=== PATIENT | male | born 1955 | race Caucasian/White ===

== ENCOUNTER 2019-03-07 20:14 | Inpatient (IN) | payer MEDICARE, OTHER ==
[~2019-03-07] VITALS: Ht 180.3 cm; Wt 82.7 kg
[2019-03-07] MEDS ORDERED: NO HOME MEDS (20:31)
[2019-03-07] MEDS ORDERED: morphine 4 MG/ML inj SYRINge IV ONE (20:45)
[2019-03-07] MEDS ORDERED: fentaNYL/PF 50MCG/1 ML 2ML syringe ONE (21:44)
[2019-03-07] MEDS ORDERED: midazolam 2 mg/2 ml injection ONE (21:44)
[2019-03-07] MEDS ORDERED: ringers solution, lacted 1,000 ML IV SCH (21:52)
[2019-03-07] MEDS ORDERED: hydrALAZINE 20mg/ml inj. IV PRN (21:55)
[2019-03-07] MEDS ORDERED: ondansetron/PF 4mg/2ml inj IV PRN (21:55)
[2019-03-07] MEDS ORDERED: labetalol 20mg/4ml (5mg/ml) syringe IV PRN (21:55)
[2019-03-07] MEDS ORDERED: morphine 4 MG/ML inj SYRINge IV PRN ×2 (21:55)
[2019-03-07] MEDS ORDERED: fentaNYL/PF 50MCG/1 ML 2ML syringe IV PRN ×2 (21:55)
[2019-03-07] MEDS ORDERED: succinylcholine 20mg/ml inj IV ONE (22:07)
[2019-03-07] MEDS ORDERED: propofol inj 20 ML IV ONE (22:07)
[2019-03-07] MEDS ORDERED: LIDOcaine 2% (20mg/ml) 5ml vial ONE (22:07)
[2019-03-07] MEDS ORDERED: ondansetron/PF 4mg/2ml inj ONE (22:08)
[2019-03-07] MEDS ORDERED: dexamethasone sod phosphate 10mg/ml inj ONE (22:08)
[2019-03-07] MEDS ORDERED: sevoflurane 250ml liquid IH ONE (22:08)
[2019-03-07] MEDS ORDERED: ceFOXitin 2 GM ADDVANTGE BAG 50 ML IV ONE (22:37)
[2019-03-07] MEDS ORDERED: gentamicin 40 MG/1 ML inj ONE (23:24)
[2019-03-07] MEDS ORDERED: clindamycin phosphate 150mg/ml inj. ONE (23:24)
[2019-03-07] MEDS ORDERED: morphine/PF injection 20 MG, BUPIVAcaine 0.5% inj/PF 250 MG in normal saline 250ml IV s... EPI SCH (23:28)
[2019-03-07] MEDS ORDERED: NALOXONE IV PRN (23:28)
[2019-03-07] MEDS ORDERED: NORMAL SALINE IV PRN (23:28)
[2019-03-07] MEDS ORDERED: BUPIVAcaine/PF 2.5mg/ml (0.25%) 10ml vial ONE (23:38)
[2019-03-07] MEDS ORDERED: rocuronium 10mg/ml inj IV ONE (23:39)
[2019-03-08] VITALS (38 sets, daily range): BP systolic 68–162; BP diastolic 38–91
[2019-03-08] MEDS ORDERED: fentaNYL/PF 50MCG/1 ML 2ML syringe ONE (00:11)
--- NOTE | 2019-03-08 00:17 | NUR ---
Received to room 2014, accompanied by anesthesia and surgical crew. Received report from anesthesia and circulating RN. Placed on ventilator, to travograph operator, Dressings are dry and intact. See assessment record.
[2019-03-08 00:51] LABS: ABG BASE EXCESS -3.2 mmol/L (-2.0-3.0); ABG HCO3 23.2 mmol/L (22.0-26.0); ABG OXYGEN SATURATION 96.3 % (95-98); ABG PCO2 (T) 46.1 mmHg (35.0-45.0); ABG PH (T) 7.316 (7.350-7.450); ABG PO2 (T) 90.4 mmHg (83-108); ALLEN'S TEST Positive; FCOHb 0.3 % (0.5-1.5); FMetHb 0.2 % (0.3-1.12); FO2Hb 95.8 % (94-100); MINUTE VOLUME 7 L/min; PATIENT TEMPERATURE 36.2; PEEP 5 cm H2O; RESPIRATORY RATE 16 b/min; RESPIRATORY RATE (OBSERVED) 16 b/min; TIDAL VOLUME 450 mL; TOTAL HEMOGLOBIN 9.9 G/dl (14.0-17.9)
[2019-03-08] MEDS: midazolam 100mg in NS 100ml 100 ML IV PRN ×3 (00:56→19:28)
[2019-03-08] MEDS: Potassium Cl inj 20 MEQ in ringers solution, lacted 1,000 ML IV SCH ×3 (01:49→14:50)
[2019-03-08] MEDS: piperacillin/tazo 3.375gm/50ml 50 ML IV SCH ×3 (01:50→15:29)
[2019-03-08] MEDS ORDERED: albumin (Human) 5% 250ml 500 ML IV ONE (01:57)
--- NOTE | 2019-03-08 01:57 | NUR ---
Pt hypotensive, mottled. BP not improved with 250 mL NS bolus. Esperanza notified, orders received.
[2019-03-08] MEDS ORDERED: albumin (Human) 5% 250ml 250 ML IV ONE ×2 (02:15)
[2019-03-08] MEDS: [UNRECOGNIZED DRUG - OTHER] EPI SCH (02:35)
[2019-03-08] MEDS: MORPHINE SULFATE EPI SCH (02:35)
[2019-03-08] MEDS: BUPIVACAINE EPI SCH (02:35)
[2019-03-08] MEDS ORDERED: hydrocortisone sod succ/PF 100mg/2ml inj. IV ONE (02:45)
[2019-03-08] MEDS ORDERED: NORepinephrine 8mg/ 250ml NS 250 ML IV ONE (02:56)
[2019-03-08] MEDS ORDERED: normal saline 1000ml 1,000 ML IVB ONE ×2 (03:05→03:07)
--- NOTE | 2019-03-08 03:31 | NUR ---
Dr Yu at bedside, central line placed per CLIP protocol, Levophed switched to central line. titrating per protocol Labs drawn, awaiting results
[2019-03-08 03:59] LABS: BASOPHILS % (AUTO) 0.2 % (0-1); EOSINOPHILS % (AUTO) 0.1 % (0-6); LYMPHOCYTES # (AUTO) 0.8 X10'3 (1.1-4.8); LYMPHOCYTES % (AUTO) 4.8 % (21-51); MEAN CORPUSCULAR HGB CONC 31.9 g/dL (33.0-36.5); MEAN PLATELET VOLUME 6.9 FL (7.4-10.4); MONOCYTES # (AUTO) 0.5 X10'3 (0-0.9); NEUTROPHILS # (AUTO) 15.3 X10'3 (1.8-7.7); NEUTROPHILS % (AUTO) 91.9 % (42-75); PLATELET COUNT 456 X10'3 (140-440); RED BLOOD COUNT 2.28 X10'6 (4.70-6.10); RED CELL DISTRIBUTION WIDTH 20.5 % (11.5-14.5); WHITE BLOOD COUNT 16.6 X10'3 (4.5-11.0)
[2019-03-08 04:03] LABS: HEMATOCRIT 20.7 % (42.0-52.0); HEMOGLOBIN 6.6 g/dl (14.0-17.9)
[2019-03-08 04:09] LABS: ALANINE AMINOTRANSFERASE 21 U/L (12-78); ALBUMIN 1.6 G/DL (3.4-5.0); ALBUMIN/GLOBULIN RATIO 0.4 (1.1-1.5); ALKALINE PHOSPHATASE 276 IU/L (46-116); ANION GAP 11 (8-16); ASPARTATE AMINO TRANSFERASE 37 U/L (10-37); BILIRUBIN,TOTAL 0.4 MG/DL (0.1-1.0); BLOOD UREA NITROGEN 13 MG/DL (7-18); BUN/CREATININE RATIO 15.9 (5.4-32.0); CALCIUM 7.5 MG/DL (8.5-10.1); CHLORIDE 109 MMOL/L (99-107); CREATININE 0.82 MG/DL (0.60-1.10); GLUCOSE 109 MG/DL (70-104); MAGNESIUM 1.8 MG/DL (1.5-2.4); PHOSPHORUS 5.6 MG/DL (2.3-4.5); SODIUM 143 MMOL/L (135-145); TOTAL PROTEIN 5.2 G/DL (6.4-8.2); eGFR > 90 ML/MIN
[2019-03-08 04:22] LABS: ANISOCYTOSIS 3+; HYPOCHROMASIA 2+; PLATELET ESTIMATE INCREASED
[2019-03-08] MEDS ORDERED: magnesium 4gm in 100ml NS 100 ML IV PRN (04:45)
[2019-03-08] MEDS ORDERED: magnesium 2GM in 50ml NS 50 ML IV PRN (04:45)
[2019-03-08 04:49] LABS: D-DIMER 1.92 MG/L FEU (0-0.50); PARTIAL THROMBOPLASTIN TIME 30 SECONDS (22-32)
[2019-03-08] MEDS ORDERED: calcium chloride inj. 1,000 MG in normal saline 100ml IV soln 90 ML IV ONE (04:50)
[2019-03-08 04:51] LABS: PLATELET COUNT 456 X10'3 (140-440)
[2019-03-08 04:56] LABS: ABG BASE EXCESS -7.5 mmol/L (-2.0-3.0); ABG HCO3 17.7 mmol/L (22.0-26.0); ABG OXYGEN SATURATION 98.7 % (95-98); ABG PCO2 (T) 32.6 mmHg (35.0-45.0); ABG PH (T) 7.347 (7.350-7.450); ABG PO2 (T) 127.4 mmHg (83-108); ALLEN'S TEST Positive; FCOHb 0.5 % (0.5-1.5); FMetHb 0.2 % (0.3-1.12); MINUTE VOLUME 9 L/min; PATIENT TEMPERATURE 35.9; PEEP 5 cm H2O; RESPIRATORY RATE 18 b/min; RESPIRATORY RATE (OBSERVED) 18 b/min; TIDAL VOLUME 500 mL; TOTAL HEMOGLOBIN 8.2 G/dl (14.0-17.9)
[2019-03-08] MEDS: potassium Cl 20mEq/100mL bag 100 ML IV PRN ×2 (06:43→09:19)
--- NOTE | 2019-03-08 06:44 | NUR ---
Problems reprioritized. Patient report given, questions answered & plan of care reviewed with Brendan BONILLA.
[2019-03-08] MEDS: CLINDAMYCIN/D5W 900mg/50ml 50 ML IV SCH ×2 (07:03→15:29)
[2019-03-08] MEDS: vancomycin/NS 1 GM ADD-VANTAGE 250 ML IV SCH ×2 (07:18→20:23)
[2019-03-08] MEDS: NORepinephrine 8mg/ 250ml NS 250 ML IV SCH (07:19)
--- NOTE | 2019-03-08 08:42 | NUR ---
I have reviewed and agree with all medications administered and interventions performed by [facility] Student Kvng Vivar Addendum: 03/08/19 at 0842 by Terrie Figueroa RT Amended: Links added.
[2019-03-08 12:17] LABS: BASOPHILS % (AUTO) 0.1 % (0-1); EOSINOPHILS % (AUTO) 0 % (0-6); HEMATOCRIT 30.1 % (42.0-52.0); HEMOGLOBIN 9.6 g/dl (14.0-17.9); LYMPHOCYTES # (AUTO) 1.1 X10'3 (1.1-4.8); LYMPHOCYTES % (AUTO) 9.1 % (21-51); MEAN CORPUSCULAR HEMOGLOBIN 28.6 PG (27.0-31.0); MEAN CORPUSCULAR HGB CONC 31.8 g/dL (33.0-36.5); MEAN CORPUSCULAR VOLUME 89.8 FL (78-98); MEAN PLATELET VOLUME 7.5 FL (7.4-10.4); MONOCYTES # (AUTO) 0.6 X10'3 (0-0.9); MONOCYTES % (AUTO) 4.6 % (2-12); NEUTROPHILS # (AUTO) 10.6 X10'3 (1.8-7.7); NEUTROPHILS % (AUTO) 86.2 % (42-75); PLATELET COUNT 504 X10'3 (140-440); RED BLOOD COUNT 3.35 X10'6 (4.70-6.10); RED CELL DISTRIBUTION WIDTH 20.2 % (11.5-14.5); WHITE BLOOD COUNT 12.3 X10'3 (4.5-11.0)
[2019-03-08 12:35] LABS: ALANINE AMINOTRANSFERASE 34 U/L (12-78); ALBUMIN 1.7 G/DL (3.4-5.0); ALBUMIN/GLOBULIN RATIO 0.4 (1.1-1.5); ALKALINE PHOSPHATASE 365 IU/L (46-116); ANION GAP 16 (8-16); ASPARTATE AMINO TRANSFERASE 45 U/L (10-37); BILIRUBIN,TOTAL 0.9 MG/DL (0.1-1.0); BLOOD UREA NITROGEN 14 MG/DL (7-18); BUN/CREATININE RATIO 17.5 (5.4-32.0); CALCIUM 8.7 MG/DL (8.5-10.1); CHLORIDE 108 MMOL/L (99-107); GLUCOSE 146 MG/DL (70-104); MAGNESIUM 1.8 MG/DL (1.5-2.4); POTASSIUM 4.3 MMOL/L (3.5-5.1); SODIUM 142 MMOL/L (135-145); TOTAL CARBON DIOXIDE 17.8 MMOL/L (24-32); TOTAL PROTEIN 5.8 G/DL (6.4-8.2); eGFR > 90 ML/MIN
[2019-03-08 13:14] LABS: URINE AMPHETAMINE SCREEN NEGATIVE (Neg); URINE BARBITUATE SCREEN NEGATIVE (Neg); URINE BENZODIAZEPINES SCREEN POSITIVE (Neg); URINE CANNABINOID SCREEN NEGATIVE (Neg); URINE COCAINE SCREEN NEGATIVE (Neg); URINE METHADONE SCREEN NEGATIVE (Neg); URINE OPIATE SCREEN POSITIVE (Neg); URINE PHENCYCLIDINE SCREEN NEGATIVE (Neg)
[2019-03-08 13:38] LABS: ANISOCYTOSIS 3+; PLATELET ESTIMATE INCREASED; TOTAL CELLS COUNTED 100
[2019-03-08 13:40] LABS: HYPOCHROMASIA 1+; POIKILOCYTOSIS 1+; POLYCHROMASIA 1+
[2019-03-08] MEDS ORDERED: acetaminophen 325mg/10.15ml oral unit dose solution PO PRN (13:40)
[2019-03-08 14:22] LABS: HIV ANTIBODY 1&2 RAPID NON-REACTIVE (Neg)
--- NOTE | 2019-03-08 14:37 | NUR ---
Pt on ventilator, not available to complete admissions, limited medical history on medical records, primary RN left message to family member dina ([phone]) to return call. primary RN to followup and complete admission interventions
[2019-03-08 16:31] LABS: ABG BASE EXCESS -6.1 mmol/L (-2.0-3.0); ABG HCO3 18.4 mmol/L (22.0-26.0); ABG OXYGEN SATURATION 98.7 % (95-98); ABG PH (T) 7.355 (7.350-7.450); ABG PO2 (T) 172.8 mmHg (83-108); FCOHb 0.3 % (0.5-1.5); FMetHb 0.1 % (0.3-1.12); FO2Hb 98.3 % (94-100); MINUTE VOLUME 8 L/min; PEEP 5 cm H2O; RESPIRATORY RATE 18 b/min; RESPIRATORY RATE (OBSERVED) 19 b/min; TIDAL VOLUME 500 mL; TOTAL HEMOGLOBIN 10.4 G/dl (14.0-17.9)
--- NOTE | 2019-03-08 17:37 | NUR ---
Initial Assessment (03/08): Pt is admitted to the unit with dx of sepsis. Pt does not have any past medical hx or surgical hx documented on physical hx. Per pt fell down on a cup or glass somewhere between one or 2 weeks ago causing the initial laceration to his chest. Complained of some SOB. A CT scan of the chest was done and revealed a fluid collection containing air in the left chest wall and a left upper lobe pneumonia, s/p debridement of the chest wound. Pt is intubated with antibiotics x3, and Levophed 17mcg. Pt is planning to go back to OR tomorrow, no TF today or tomorrow discussed with MD during rounds. TF recs. of using Vital AF 1.2 Dmitriy at goal rate of 85ml/hr. Phos binder recs. if TF initiates per MD due to elevated phos level. Will continue to monitor. Recommendations: 1. If TF, using Vital AF 1.2 Dmitriy at goal rate of 85ml/hr; to provide 2040ml fluid,2448kcal, 1652ml free water, and 153g protein. 2. Additional water flushes 180 ml q 4 hours 2. Rec. phos binder per MD due to elevated Phos level 3. Routine bowel care 4. Weekly wts Addendum: 03/08/19 at [address] Amended: Links added.
--- NOTE | 2019-03-08 18:30 | NUR ---
Patient in room CICU 2013. I have received report from Brendan BONILLA and had the opportunity to ask questions and assume patient care.
[2019-03-09] VITALS (23 sets, daily range): BP systolic 82–120; BP diastolic 50–68
[2019-03-09] MEDS: Potassium Cl inj 20 MEQ in ringers solution, lacted 1,000 ML IV SCH ×4 (00:29→22:59)
[2019-03-09] MEDS: piperacillin/tazo 3.375gm/50ml 50 ML IV SCH ×3 (00:29→16:15)
[2019-03-09] MEDS: CLINDAMYCIN/D5W 900mg/50ml 50 ML IV SCH ×3 (00:30→16:15)
[2019-03-09 02:55] LABS: BASOPHILS % (AUTO) 0.2 % (0-1); EOSINOPHILS % (AUTO) 0 % (0-6); HEMATOCRIT 26.1 % (42.0-52.0); HEMOGLOBIN 8.8 g/dl (14.0-17.9); LYMPHOCYTES # (AUTO) 1.4 X10'3 (1.1-4.8); LYMPHOCYTES % (AUTO) 11.9 % (21-51); MEAN CORPUSCULAR HEMOGLOBIN 29.3 PG (27.0-31.0); MEAN CORPUSCULAR HGB CONC 33.6 g/dL (33.0-36.5); MEAN PLATELET VOLUME 7.5 FL (7.4-10.4); MONOCYTES # (AUTO) 1.3 X10'3 (0-0.9); MONOCYTES % (AUTO) 11.2 % (2-12); NEUTROPHILS # (AUTO) 8.9 X10'3 (1.8-7.7); NEUTROPHILS % (AUTO) 76.7 % (42-75); PLATELET COUNT 341 X10'3 (140-440); RED CELL DISTRIBUTION WIDTH 20.5 % (11.5-14.5); WHITE BLOOD COUNT 11.6 X10'3 (4.5-11.0)
[2019-03-09 03:00] LABS: ALBUMIN 1.5 G/DL (3.4-5.0); ANION GAP 10 (8-16); BLOOD UREA NITROGEN 19 MG/DL (7-18); BUN/CREATININE RATIO 23.5 (5.4-32.0); CALCIUM 8.4 MG/DL (8.5-10.1); CHLORIDE 110 MMOL/L (99-107); CREATININE 0.81 MG/DL (0.60-1.10); GLUCOSE 138 MG/DL (70-104); POTASSIUM 4.1 MMOL/L (3.5-5.1); SODIUM 143 MMOL/L (135-145); TOTAL CARBON DIOXIDE 22.9 MMOL/L (24-32); eGFR > 90 ML/MIN
[2019-03-09 03:46] LABS: ABG BASE EXCESS -3.3 mmol/L (-2.0-3.0); ABG HCO3 20.3 mmol/L (22.0-26.0); ABG OXYGEN SATURATION 95.5 % (95-98); ABG PH (T) 7.433 (7.350-7.450); ABG PO2 (T) 81.3 mmHg (83-108); FCOHb 0.3 % (0.5-1.5); FMetHb 0.1 % (0.3-1.12); FO2Hb 95.1 % (94-100); MINUTE VOLUME 9 L/min; PATIENT TEMPERATURE 36.8; PEEP 5 cm H2O; RESPIRATORY RATE 18 b/min; RESPIRATORY RATE (OBSERVED) 18 b/min; TIDAL VOLUME 500 mL; TOTAL HEMOGLOBIN 9.7 G/dl (14.0-17.9)
[2019-03-09 04:15] LABS: PHOSPHORUS 4.4 MG/DL (2.3-4.5)
[2019-03-09 04:47] LABS: TOTAL CELLS COUNTED 100
[2019-03-09 04:48] LABS: ANISOCYTOSIS 3+; PLATELET ESTIMATE NORMAL; POLYCHROMASIA 1+
[2019-03-09 04:49] LABS: HYPOCHROMASIA 1+
--- NOTE | 2019-03-09 04:55 | NUR ---
Late entry:03/08/19@1923: Lungs sounds on L side diminished, slight amount of air palpated beneath dressing on L upper side of dressing. Sats 99% on 40% FiO2. ETT position noted from AM chest xray. Chest xray obtained. Esperanza updated.
--- NOTE | 2019-03-09 05:02 | NUR ---
Levophed remains off. Sats 97% on 45% FiO2. Pain controlled via epidural.
[2019-03-09] MEDS: midazolam 100mg in NS 100ml 100 ML IV PRN (06:27)
--- NOTE | 2019-03-09 06:39 | NUR ---
Problems reprioritized. Patient report given, questions answered & plan of care reviewed with Isrrael BONILLA.
[2019-03-09] MEDS ORDERED: ondansetron/PF 4mg/2ml inj IV PRN (09:40)
[2019-03-09] MEDS ORDERED: ringers solution, lacted 1,000 ML IV SCH (09:40)
[2019-03-09] MEDS ORDERED: meperidine/PF 25mg/ml syringe IV PRN ×3 (09:40)
[2019-03-09] MEDS ORDERED: proCHLORperazine 10 MG/2 ml inj IV PRN (09:40)
[2019-03-09] MEDS ORDERED: morphine 4 MG/ML inj SYRINge IV PRN ×2 (09:40)
--- NOTE | 2019-03-09 11:53 | NUR ---
Patient to OR
[2019-03-09] MEDS ORDERED: fentaNYL /PF 50mcg/ml 5ml ampule ONE (11:54)
[2019-03-09] MEDS ORDERED: sevoflurane 250ml liquid IH ONE (11:57)
[2019-03-09] MEDS ORDERED: rocuronium 10mg/ml inj IV ONE (11:57)
--- NOTE | 2019-03-09 12:03 | NUR ---
03/09 Reassessment: Pt remains intubated and not ready for extubation per MD notes. Surgeon following, pt currently in OR. TF recommendations remain in place for if prolonged intubation and to receive nutrition support. Pt with increased protein needs r/t dx and intubation. Will continue to follow. Initial Assessment (03/08): Pt is admitted to the unit with dx of sepsis. Pt does not have any past medical hx or surgical hx documented on physical hx. Per pt fell down on a cup or glass somewhere between one or 2 weeks ago causing the initial laceration to his chest. Complained of some SOB. A CT scan of the chest was done and revealed a fluid collection containing air in the left chest wall and a left upper lobe pneumonia, s/p debridement of the chest wound. Pt is intubated with antibiotics x3, and Levophed 17mcg. Pt is planning to go back to OR tomorrow, no TF today or tomorrow discussed with MD during rounds. TF recs. of using Vital AF 1.2 Dmitriy at goal rate of 85ml/hr. Phos binder recs. if TF initiates per MD due to elevated phos level. Will continue to monitor. Recommendations: 1. If TF, using Vital AF 1.2 with goal rate of 85 ml/hr; to provide 2040 ml fluid,2448 kcal, 1652 ml free water, and 153 g protein. 2. If TF, additional water flushes 180 ml q 4 hours 3. If TF, prealbumin q /; daily wts 4. Rec. phos binder per MD due to elevated Phos level 5. Routine bowel care 6. Diet advancement to regular as medically indicated following extubation Addendum: 03/09/19 at [address] Amended: Links added.
--- NOTE | 2019-03-09 13:00 | NUR ---
Patient back from OR and placed on monitor. Blood pressure low; Dr. Colon at bedside to given normal saline bolus of 250ml; some improvement noted. Will continue to monitor. Will attempt to extubate if patient passes weaning parameters.
--- NOTE | 2019-03-09 16:00 | NUR ---
Patient not passing weaning parameters with respiratory therapy and not waking up. Noted in Dr. Patiño's AM note that patient is "not ready to be weaned off ventilator. extensive infiltrate in the left lung, partly contusion and partly due to consolidation. high risk for developing empyema." Sana GREENE for Dr. Patiño this afternoon recommending to hold on extubation until AM when patient more alert and acetylene gas compressor at the bedside.
--- NOTE | 2019-03-09 18:20 | NUR ---
Problems reprioritized. Patient report given, questions answered & plan of care reviewed with Amita BONILLA.
--- NOTE | 2019-03-09 18:30 | NUR ---
Patient in room CICU 2013. I have received report from Isrrael BONILLA and had the opportunity to ask questions and assume patient care.
[2019-03-09] MEDS: BUPIVACAINE EPI SCH (20:29)
[2019-03-09] MEDS: [UNRECOGNIZED DRUG - OTHER] EPI SCH (20:29)
[2019-03-09] MEDS: MORPHINE SULFATE EPI SCH (20:29)
[2019-03-09 21:50] LABS: CLARITY,URINE SLIGHTLY CLOUDY (Clear); COLOR,URINE YELLOW (Yellow); GLUCOSE, URINE NEGATIVE (Neg); KETONES,URINE NEGATIVE (Neg); LEUKOCYTE ESTERASE ,URINE NEGATIVE (Neg); NITRITES, URINE NEGATIVE (Neg); OCCULT BLOOD,URINE NEGATIVE (Neg); PROTEIN,URINE NEGATIVE (Neg); UROBILINOGEN,URINE 0.2 E.U/dL (0.2-1.0)
[2019-03-09 21:51] LABS: UA COLLECTION TYPE FOLEY CATH
[2019-03-09 22:06] LABS: AMORPHOUS URATES 1+; BACTERIA,URINE NONE SEEN /HPF (Neg); MUCUS STRANDS FEW /LPF (Neg); RBC,URINE NONE SEEN /HPF (0-2); SQUAMOUS EPITHELIAL CELL,UR NONE SEEN /LPF (FEW); URIC ACID CRYSTALS 2+ /HPF (NEGATIVE); WBC,URINE 0-4 /HPF (0-4)
[2019-03-10] VITALS (24 sets, daily range): BP systolic 79–137; BP diastolic 50–82
[2019-03-10] MEDS: piperacillin/tazo 3.375gm/50ml 50 ML IV SCH ×3 (00:14→16:17)
[2019-03-10] MEDS: CLINDAMYCIN/D5W 900mg/50ml 50 ML IV SCH ×3 (00:14→16:17)
[2019-03-10] MEDS ORDERED: morphine/PF injection 8 MG in normal saline 100ml IV soln 92 ML EPI SCH (02:15)
[2019-03-10] MEDS ORDERED: morphine sulfate /PF inj. 8 MG in normal saline 100ml IV soln 84 ML EPI SCH (02:21)
--- NOTE | 2019-03-10 02:42 | NUR ---
Pt opens eyes spontaneously, turns head to voice, not following commands. moves all extremities. Levophed remains off. Will continue to monitor.
[2019-03-10 03:23] LABS: BASOPHILS % (AUTO) 0.1 % (0-1); EOSINOPHILS % (AUTO) 0.1 % (0-6); HEMATOCRIT 26.4 % (42.0-52.0); HEMOGLOBIN 8.6 g/dl (14.0-17.9); LYMPHOCYTES # (AUTO) 2.2 X10'3 (1.1-4.8); LYMPHOCYTES % (AUTO) 17.2 % (21-51); MEAN CORPUSCULAR HEMOGLOBIN 28.8 PG (27.0-31.0); MEAN CORPUSCULAR HGB CONC 32.5 g/dL (33.0-36.5); MEAN CORPUSCULAR VOLUME 88.7 FL (78-98); MEAN PLATELET VOLUME 7.9 FL (7.4-10.4); MONOCYTES # (AUTO) 1.5 X10'3 (0-0.9); MONOCYTES % (AUTO) 11.9 % (2-12); NEUTROPHILS % (AUTO) 70.7 % (42-75); PLATELET COUNT 296 X10'3 (140-440); RED BLOOD COUNT 2.97 X10'6 (4.70-6.10); RED CELL DISTRIBUTION WIDTH 20.1 % (11.5-14.5); WHITE BLOOD COUNT 12.7 X10'3 (4.5-11.0)
[2019-03-10 03:35] LABS: ALBUMIN 1.7 G/DL (3.4-5.0); ANION GAP 8 (8-16); BLOOD UREA NITROGEN 23 MG/DL (7-18); BUN/CREATININE RATIO 33.3 (5.4-32.0); CALCIUM 8.4 MG/DL (8.5-10.1); CHLORIDE 110 MMOL/L (99-107); CREATININE 0.69 MG/DL (0.60-1.10); GLUCOSE 88 MG/DL (70-104); PHOSPHORUS 3.2 MG/DL (2.3-4.5); POTASSIUM 4.2 MMOL/L (3.5-5.1); SODIUM 144 MMOL/L (135-145); TOTAL CARBON DIOXIDE 25.6 MMOL/L (24-32); eGFR > 90 ML/MIN
[2019-03-10 04:11] LABS: ABG BASE EXCESS -0.4 mmol/L (-2.0-3.0); ABG HCO3 24.3 mmol/L (22.0-26.0); ABG OXYGEN SATURATION 90.4 % (95-98); ABG PCO2 (T) 40.1 mmHg (35.0-45.0); ABG PH (T) 7.401 (7.350-7.450); ABG PO2 (T) 62.9 mmHg (83-108); FCOHb 0.3 % (0.5-1.5); FMetHb 0.3 % (0.3-1.12); FO2Hb 89.9 % (94-100); MINUTE VOLUME 10 L/min; PEEP 5 cm H2O; RESPIRATORY RATE 16 b/min; RESPIRATORY RATE (OBSERVED) 18 b/min; TIDAL VOLUME 500 mL; TOTAL HEMOGLOBIN 10.4 G/dl (14.0-17.9)
[2019-03-10] MEDS: midazolam 100mg in NS 100ml 100 ML IV PRN (04:27)
--- NOTE | 2019-03-10 06:19 | NUR ---
Problems reprioritized. Patient report given, questions answered & plan of care reviewed with Damion BONILLA.
--- NOTE | 2019-03-10 06:20 | NUR ---
Patient in room CICU 2013. I have received report from Amita BONILLA and had the opportunity to ask questions and assume patient care.
[2019-03-10] MEDS: NORepinephrine 8mg/ 250ml NS 250 ML IV SCH (07:10)
[2019-03-10 07:20] LABS: ANISOCYTOSIS 3+; PLATELET ESTIMATE NORMAL; POLYCHROMASIA FEW; TOTAL CELLS COUNTED 100
[2019-03-10] MEDS: Potassium Cl inj 20 MEQ in ringers solution, lacted 1,000 ML IV SCH ×2 (08:21→22:17)
[2019-03-10] MEDS ORDERED: furosemide 40mg/4ml inj IV ONE (08:35)
[2019-03-10] MEDS ORDERED: MESSAGE TO PHARMACY PO ONE (08:35)
[2019-03-10] MEDS ORDERED: dextrose 50%-water 50ml dispensing syringe IV PRN (08:35)
[2019-03-10] MEDS ORDERED: dextrose ORAL solution 15 GM/59 ML bottle PO PRN ×2 (08:35)
[2019-03-10] MEDS ORDERED: insulin regular, human vial - multi-dose SQ SCH (08:35)
[2019-03-10] MEDS ORDERED: glucagon, human recombinant 1mg kit SUBCUT PRN (08:35)
[2019-03-10] MEDS: dextrose 50%-water 50ml dispensing syringe IV PRN ×2 (09:02→16:29)
--- NOTE | 2019-03-10 10:49 | NUR ---
TF Consult: Pt intubated s/p L chest wall debridement for necrotizing fasciitis w/ wound vac placed per MD note. OGTF to start today per MD. Recs below for wound healing needs. Pt has had no BM yet since admit on morphine and would benefit from opioid antagonist per MD approval post-op. Will monitor for TF tolerance. Recommendations: 1. OGTF per MD using Vital AF 1.2 at 95ml/hr goal; to provide 2280 ml fluid,2736 kcal, 1847 ml free water, and 171 g protein. 2. additional water flushes 200ml Q4 3. prealbumin q /; daily wts 4. Routine bowel care; opioid antagonist per surgeon approval post-op on morphine 5. Diet advancement to regular as medically indicated following extubation Addendum: 03/10/19 at [address] Amended: Links added.
[2019-03-10] MEDS ORDERED: dextrose ORAL solution 15 GM/59 ML bottle OGT PRN ×2 (12:09→12:10)
[2019-03-10] MEDS ORDERED: acetaminophen 325mg/10.15ml oral unit dose solution OGT PRN (12:09)
[2019-03-10] MEDS ORDERED: iohexol 300mg/ml 100ml inj. ONE (14:17)
--- NOTE | 2019-03-10 15:43 | NUR ---
Call from radiology who state that the patient has probable empyema to left chest and moderate pleural effusion to right chest. Will continue to monitor.
--- NOTE | 2019-03-10 16:10 | NUR ---
Dr. Patiño notified of CT results.
[2019-03-10] MEDS: morphine sulfate /PF inj. 8 MG in normal saline 100ml IV soln 84 ML EPI SCH (16:11)
--- NOTE | 2019-03-10 17:54 | NUR ---
Notified Dr. King of results of CT Chest of left side empyema. States he will take care of plan. Will continue to monitor.
--- NOTE | 2019-03-10 18:28 | NUR ---
Problems reprioritized. Patient report given, questions answered & plan of care reviewed with ISSAC Medina.
[2019-03-10] MEDS: lactobacillus rhamnosus 10,000 MMU CELLS/CAPSULE OGT SCH (20:08)
[2019-03-10] MEDS: insulin glargine (Lantus) pen - multi-dose SQ SCH (21:00)
[2019-03-11] VITALS (25 sets, daily range): BP systolic 72–120; BP diastolic 45–71
[2019-03-11] MEDS: MORPHINE SULFATE EPI SCH ×4 (00:35→18:42)
[2019-03-11] MEDS: NORMAL SALINE EPI SCH ×4 (00:35→18:42)
[2019-03-11] MEDS: CLINDAMYCIN/D5W 900mg/50ml 50 ML IV SCH ×3 (00:58→16:41)
[2019-03-11] MEDS: piperacillin/tazo 3.375gm/50ml 50 ML IV SCH ×2 (00:58→09:29)
[2019-03-11] MEDS: midazolam 100mg in NS 100ml 100 ML IV PRN ×2 (02:02→21:44)
[2019-03-11] MEDS: morphine sulfate /PF inj. 8 MG in normal saline 100ml IV soln 84 ML EPI SCH (02:37)
[2019-03-11 02:59] LABS: ALBUMIN 1.8 G/DL (3.4-5.0); ANION GAP 7 (8-16); BLOOD UREA NITROGEN 17 MG/DL (7-18); BUN/CREATININE RATIO 25.8 (5.4-32.0); CHLORIDE 104 MMOL/L (99-107); CREATININE 0.66 MG/DL (0.60-1.10); GLUCOSE 93 MG/DL (70-104); POTASSIUM 3.8 MMOL/L (3.5-5.1); PREALBUMIN 15.1 MG/DL (19-36); SODIUM 140 MMOL/L (135-145); TOTAL CARBON DIOXIDE 29.2 MMOL/L (24-32); eGFR > 90 ML/MIN
[2019-03-11 03:08] LABS: BASOPHILS % (AUTO) 0.1 % (0-1); EOSINOPHILS # (AUTO) 0.1 X10'3 (0-0.9); EOSINOPHILS % (AUTO) 0.5 % (0-6); HEMATOCRIT 28.9 % (42.0-52.0); HEMOGLOBIN 9.4 g/dl (14.0-17.9); LYMPHOCYTES # (AUTO) 2.7 X10'3 (1.1-4.8); LYMPHOCYTES % (AUTO) 17.9 % (21-51); MEAN CORPUSCULAR HEMOGLOBIN 29.1 PG (27.0-31.0); MEAN CORPUSCULAR HGB CONC 32.7 g/dL (33.0-36.5); MEAN PLATELET VOLUME 8.7 FL (7.4-10.4); MONOCYTES # (AUTO) 1.7 X10'3 (0-0.9); MONOCYTES % (AUTO) 11.3 % (2-12); NEUTROPHILS # (AUTO) 10.7 X10'3 (1.8-7.7); NEUTROPHILS % (AUTO) 70.2 % (42-75); PLATELET COUNT 339 X10'3 (140-440); RED BLOOD COUNT 3.24 X10'6 (4.70-6.10); RED CELL DISTRIBUTION WIDTH 19.8 % (11.5-14.5); WHITE BLOOD COUNT 15.2 X10'3 (4.5-11.0)
[2019-03-11 03:55] LABS: ABG BASE EXCESS -0.1 mmol/L (-2.0-3.0); ABG HCO3 23.9 mmol/L (22.0-26.0); ABG OXYGEN SATURATION 96.1 % (95-98); ABG PCO2 (T) 36.9 mmHg (35.0-45.0); ABG PH (T) 7.431 (7.350-7.450); ABG PO2 (T) 88.1 mmHg (83-108); FCOHb 0.3 % (0.5-1.5); FMetHb 0.1 % (0.3-1.12); FO2Hb 95.7 % (94-100); MINUTE VOLUME 9 L/min; PATIENT TEMPERATURE 37.1; PEEP 8 cm H2O; RESPIRATORY RATE 16 b/min; RESPIRATORY RATE (OBSERVED) 16 b/min; TIDAL VOLUME 500 mL; TOTAL HEMOGLOBIN 10.6 G/dl (14.0-17.9)
--- NOTE | 2019-03-11 06:30 | NUR ---
Received patient report from CHAD Medina and FELICITAS Dong.
--- NOTE | 2019-03-11 06:30 | NUR ---
Student documentation: I have reviewed and agree with all interventions, assessments performed and documented by Loretta. Problems reprioritized. Patient report given, questions answered & plan of care reviewed with Loretta.
--- NOTE | 2019-03-11 06:42 | NUR ---
Problems reprioritized. Patient report given, questions answered & plan of care reviewed with Dawn BONILLA.
[2019-03-11] MEDS: lactobacillus rhamnosus 10,000 MMU CELLS/CAPSULE OGT SCH ×2 (09:28→20:26)
[2019-03-11 09:59] LABS: TOTAL CELLS COUNTED 100
[2019-03-11 10:00] LABS: ANISOCYTOSIS 2+; PLATELET ESTIMATE NORMAL; POLYCHROMASIA 1+
[2019-03-11] MEDS: penicillin G potassium inj 4,000,000 UNIT in normal saline 100ml IV soln 100 ML IV SCH ×3 (12:02→20:34)
--- NOTE | 2019-03-11 15:09 | NUR ---
Patient transported to IR via hospital bed with 2 IR RNs and RT.
--- NOTE | 2019-03-11 16:00 | NUR ---
Patient back from IR, no chest tube placed.
--- NOTE | 2019-03-11 18:20 | NUR ---
Report given to CHAD Medina and FELICITAS Dong
[2019-03-11] MEDS: insulin glargine (Lantus) pen - multi-dose SQ SCH (21:00)
[2019-03-12] VITALS (23 sets, daily range): BP systolic 76–118; BP diastolic 44–65
[2019-03-12] MEDS: penicillin G potassium inj 4,000,000 UNIT in normal saline 100ml IV soln 100 ML IV SCH ×6 (00:02→19:55)
[2019-03-12] MEDS: CLINDAMYCIN/D5W 900mg/50ml 50 ML IV SCH ×3 (01:10→16:43)
[2019-03-12] MEDS: MORPHINE SULFATE EPI SCH ×3 (01:15→14:05)
[2019-03-12] MEDS: NORMAL SALINE EPI SCH ×3 (01:15→14:05)
[2019-03-12 03:20] LABS: ABG BASE EXCESS 1.2 mmol/L (-2.0-3.0); ABG HCO3 25.8 mmol/L (22.0-26.0); ABG OXYGEN SATURATION 96.1 % (95-98); ABG PCO2 (T) 41.1 mmHg (35.0-45.0); ABG PH (T) 7.417 (7.350-7.450); ABG PO2 (T) 91.1 mmHg (83-108); FCOHb 0.1 % (0.5-1.5); FMetHb 0.3 % (0.3-1.12); FO2Hb 95.7 % (94-100); MINUTE VOLUME 10 L/min; PATIENT TEMPERATURE 37.2; PEEP 8 cm H2O; RESPIRATORY RATE 16 b/min; RESPIRATORY RATE (OBSERVED) 18 b/min; TIDAL VOLUME 500 mL; TOTAL HEMOGLOBIN 10.1 G/dl (14.0-17.9)
[2019-03-12 03:40] LABS: BASOPHILS % (AUTO) 0.2 % (0-1); EOSINOPHILS # (AUTO) 0.2 X10'3 (0-0.9); EOSINOPHILS % (AUTO) 1.2 % (0-6); HEMATOCRIT 27.9 % (42.0-52.0); HEMOGLOBIN 9.1 g/dl (14.0-17.9); LYMPHOCYTES # (AUTO) 2.6 X10'3 (1.1-4.8); LYMPHOCYTES % (AUTO) 15.6 % (21-51); MEAN CORPUSCULAR HGB CONC 32.5 g/dL (33.0-36.5); MEAN CORPUSCULAR VOLUME 89.2 FL (78-98); MEAN PLATELET VOLUME 8.9 FL (7.4-10.4); MONOCYTES # (AUTO) 1.8 X10'3 (0-0.9); MONOCYTES % (AUTO) 10.5 % (2-12); NEUTROPHILS # (AUTO) 12.1 X10'3 (1.8-7.7); NEUTROPHILS % (AUTO) 72.5 % (42-75); PLATELET COUNT 424 X10'3 (140-440); RED BLOOD COUNT 3.13 X10'6 (4.70-6.10); RED CELL DISTRIBUTION WIDTH 19.9 % (11.5-14.5); WHITE BLOOD COUNT 16.7 X10'3 (4.5-11.0)
[2019-03-12 03:44] LABS: ALBUMIN 1.7 G/DL (3.4-5.0); ANION GAP 7 (8-16); BLOOD UREA NITROGEN 14 MG/DL (7-18); BUN/CREATININE RATIO 26.4 (5.4-32.0); CHLORIDE 101 MMOL/L (99-107); CREATININE 0.53 MG/DL (0.60-1.10); GLUCOSE 125 MG/DL (70-104); POTASSIUM 3.8 MMOL/L (3.5-5.1); SODIUM 136 MMOL/L (135-145); TOTAL CARBON DIOXIDE 28.4 MMOL/L (24-32); eGFR > 90 ML/MIN
[2019-03-12 04:15] LABS: TOTAL CELLS COUNTED 100
[2019-03-12 04:19] LABS: ANISOCYTOSIS 2+; PLATELET ESTIMATE NORMAL
[2019-03-12 04:20] LABS: POLYCHROMASIA FEW
--- NOTE | 2019-03-12 06:30 | NUR ---
Patient in room CICU 2013. I have received report from Carol BONILLA and had the opportunity to ask questions and assume patient care. Patient laying in bed with eyes closed, on ventilator fio2 50% peep of 8 Sating 96-98%, epidural in place with duramorph infusing, Art line to R fem, Central line to R fem, dumont draining to gravity, wound vac to Left upper chest clean dry and intact 125 mmhg, serosang drainage. vital signs stable will continue to monitor
--- NOTE | 2019-03-12 06:30 | NUR ---
Student documentation: I have reviewed and agree with all interventions, assessments performed and documented by Loretta. Student Medication Administration: For this medication-pass time frame, all medication were reviewed, dispensed, administered and documented per hospital policy by Loretta.
--- NOTE | 2019-03-12 06:30 | NUR ---
Problems reprioritized. Patient report given, questions answered & plan of care reviewed with Ameena Gloria RN.
[2019-03-12 07:10] LABS: HEPATITIS C ANTIBODY <0.1 s/co ratio (0.0-0.9)
[2019-03-12] MEDS: lactobacillus rhamnosus 10,000 MMU CELLS/CAPSULE OGT SCH ×2 (07:35→20:42)
[2019-03-12] MEDS: scopolamine 1.5mg patch.TD72 TD SCH (10:10)
[2019-03-12] MEDS ORDERED: methylnaltrexone br 12mg/0.6ml inj***SubQ only SQ ONE (11:10)
--- NOTE | 2019-03-12 13:20 | NUR ---
Called the son Michael to obtain consent for the bronchoscopy and picc line placement. Michael consented to both, verified with second RN consents in chart
--- NOTE | 2019-03-12 15:52 | NUR ---
F/U (03/12): Pt is still on ventilator, left side opacified noted per MD. MAP 58. Pt continue tolerating TF at goal with GRV WNL. No record of BM was noted on chart MD agreed to provide Relistor as discussed at rounds. Will continue to monitor TF tolerance. Recommendations: 1. OGTF per MD using Vital AF 1.2 at 95ml/hr goal; to provide 2280 ml fluid,2736 kcal, 1847 ml free water, and 171 g protein. 2. additional water flushes 200ml Q4 3. prealbumin q /; daily wts 4. Routine bowel care 5. Diet advancement to regular as medically indicated following extubation Addendum: 03/12/19 at [address] Amended: Links added. Addendum: 03/12/19 at [address] I have reviewed and agree with note by Top Coater. Eden Babcock, RD
--- NOTE | 2019-03-12 16:30 | NUR ---
Dr Gunter bedside to do [facility], RT present as well, bolused pt with 2mg versed per Anderson request. Patient tolerated well. Addressed the epidural with DR Gunter, he stated to remove it and start him on a fentanyl gtt for pain. No other new orders at this time
--- NOTE | 2019-03-12 18:30 | NUR ---
assumed care from Ameena BONILLA no questions or concerns after assuming care
--- NOTE | 2019-03-12 18:32 | NUR ---
Problems reprioritized. Patient report given, questions answered & plan of care reviewed with .
[2019-03-12] MEDS: insulin glargine (Lantus) pen - multi-dose SQ SCH (21:00)
[2019-03-12] MEDS: FENTANYL-0.9 % NACL/PF 100 ML IV PRN (21:34)
--- NOTE | 2019-03-12 21:49 | NUR ---
dc'd patients epidural per dr. order ,started patient on fentynal drip for pain, rr even un labored no observable s/s of acute stress at this time
[2019-03-13] VITALS (24 sets, daily range): BP systolic 93–137; BP diastolic 48–78
[2019-03-13] MEDS: CLINDAMYCIN/D5W 900mg/50ml 50 ML IV SCH ×3 (00:06→15:56)
[2019-03-13] MEDS: penicillin G potassium inj 4,000,000 UNIT in normal saline 100ml IV soln 100 ML IV SCH ×6 (00:06→20:14)
--- NOTE | 2019-03-13 01:48 | NUR ---
PATIENT IN BED EYES CLOSED RR EVEN UN LABORED NO OBSERVABLE S/S OF ACUTE STRESS AT THIS TIME
[2019-03-13 02:31] LABS: ABG BASE EXCESS 4.2 mmol/L (-2.0-3.0); ABG HCO3 28.7 mmol/L (22.0-26.0); ABG OXYGEN SATURATION 96.1 % (95-98); ABG PCO2 (T) 43.4 mmHg (35.0-45.0); ABG PO2 (T) 81.9 mmHg (83-108); FCOHb 0.3 % (0.5-1.5); FMetHb 0.2 % (0.3-1.12); FO2Hb 95.6 % (94-100); MINUTE VOLUME 9 L/min; PATIENT TEMPERATURE 37.3; PEEP 8 cm H2O; RESPIRATORY RATE 16 b/min; RESPIRATORY RATE (OBSERVED) 18 b/min; TIDAL VOLUME 500 mL; TOTAL HEMOGLOBIN 9.6 G/dl (14.0-17.9)
[2019-03-13 03:03] LABS: BASOPHILS % (AUTO) 0.2 % (0-1); EOSINOPHILS # (AUTO) 0.1 X10'3 (0-0.9); EOSINOPHILS % (AUTO) 0.9 % (0-6); HEMOGLOBIN 8.5 g/dl (14.0-17.9); LYMPHOCYTES # (AUTO) 2.3 X10'3 (1.1-4.8); LYMPHOCYTES % (AUTO) 14.5 % (21-51); MEAN CORPUSCULAR HEMOGLOBIN 29.4 PG (27.0-31.0); MEAN CORPUSCULAR HGB CONC 32.6 g/dL (33.0-36.5); MEAN PLATELET VOLUME 8.4 FL (7.4-10.4); MONOCYTES # (AUTO) 1.8 X10'3 (0-0.9); MONOCYTES % (AUTO) 11.3 % (2-12); NEUTROPHILS # (AUTO) 11.8 X10'3 (1.8-7.7); NEUTROPHILS % (AUTO) 73.1 % (42-75); PLATELET COUNT 566 X10'3 (140-440); RED BLOOD COUNT 2.89 X10'6 (4.70-6.10); RED CELL DISTRIBUTION WIDTH 19.9 % (11.5-14.5); WHITE BLOOD COUNT 16.1 X10'3 (4.5-11.0)
[2019-03-13 03:11] LABS: ALBUMIN 1.6 G/DL (3.4-5.0); ANION GAP 4 (8-16); BLOOD UREA NITROGEN 12 MG/DL (7-18); BUN/CREATININE RATIO 23.1 (5.4-32.0); CALCIUM 8.4 MG/DL (8.5-10.1); CHLORIDE 101 MMOL/L (99-107); CREATININE 0.52 MG/DL (0.60-1.10); GLUCOSE 92 MG/DL (70-104); SODIUM 134 MMOL/L (135-145); TOTAL CARBON DIOXIDE 28.8 MMOL/L (24-32); eGFR > 90 ML/MIN
--- NOTE | 2019-03-13 04:29 | NUR ---
PATIENT IN BED EYES CLOSED RR EVEN UN LABORED NO OBSERVABLE S/S OF ACUTE STRESS AT THIS TIME WILL CONTINUE TO MONITOR
[2019-03-13 04:43] LABS: ANISOCYTOSIS 2+; HYPOCHROMASIA 1+; PLATELET ESTIMATE INCREASED; POLYCHROMASIA FEW; TOTAL CELLS COUNTED 100
--- NOTE | 2019-03-13 05:23 | NUR ---
[employer] WILL BE GOING DOWN TODAY FOR MAINTENANCE AT 0600 HRS PRINTED HNP AND LABS FOR DAY SHIFT RN
[2019-03-13] MEDS: lactobacillus rhamnosus 10,000 MMU CELLS/CAPSULE OGT SCH ×2 (09:12→20:15)
[2019-03-13] MEDS ORDERED: furosemide 40mg/4ml inj IV ONE (09:20)
[2019-03-13] MEDS: midazolam 100mg in NS 100ml 100 ML IV PRN (11:28)
[2019-03-13] MEDS: FENTANYL-0.9 % NACL/PF 100 ML IV PRN (16:35)
--- NOTE | 2019-03-13 18:32 | NUR ---
received report from April BONILLA no questions or concerns after assuming care
[2019-03-13] MEDS: famotidine/PF 10 mg/ml inj IV SCH (20:15)
[2019-03-13] MEDS: enoxaparin 40mg/0.4ml syringe SUBCUT SCH (20:15)
[2019-03-13] MEDS: insulin glargine (Lantus) pen - multi-dose SQ SCH (21:00)
--- NOTE | 2019-03-13 21:05 | NUR ---
MARIANA SPENCER CALLED AND LEFT MESSAGE TO WOUND CARE PER DR. VALENTINE WOUND VAC CHANGED TOMORROW
--- NOTE | 2019-03-13 22:05 | NUR ---
PATIENT IN BED MAKING PURPOSEFUL MOVEMENTS, PATIENTS EYES CLOSED RR EVEN UN LABORED NO OBSERVABLE S/S OF ACUTE STRESS AT THIS TIME
[2019-03-13] MEDS: albuterol 2.5 MG/3 ML nebule NEB SCH (23:37)
[2019-03-13] MEDS: acetylcysteine 200 MG/ml 4ml vial INH SCH (23:38)
[2019-03-14] VITALS (24 sets, daily range): BP systolic 89–150; BP diastolic 48–80
[2019-03-14] MEDS: penicillin G potassium inj 4,000,000 UNIT in normal saline 100ml IV soln 100 ML IV SCH ×6 (00:11→22:11)
[2019-03-14] MEDS: CLINDAMYCIN/D5W 900mg/50ml 50 ML IV SCH ×4 (00:11→23:25)
[2019-03-14] MEDS ORDERED: albuterol 2.5 MG/3 ML nebule NEB SCH (03:00)
[2019-03-14] MEDS: acetylcysteine 200 MG/ml 4ml vial INH SCH ×6 (03:20→23:54)
[2019-03-14] MEDS: albuterol 2.5 MG/3 ML nebule NEB SCH ×6 (03:20→23:54)
--- NOTE | 2019-03-14 03:21 | NUR ---
RT IN GIVING PATIENT A BREATHING TX, PATIENTS RR EVEN UN LABORED NO OBSERVABLE S/S OF ACUTE STRESS AT THIS TIME
[2019-03-14 03:36] LABS: ABG BASE EXCESS 4.3 mmol/L (-2.0-3.0); ABG HCO3 27.7 mmol/L (22.0-26.0); ABG OXYGEN SATURATION 94.3 % (95-98); ABG PCO2 (T) 37.8 mmHg (35.0-45.0); ABG PH (T) 7.484 (7.350-7.450); ABG PO2 (T) 70.3 mmHg (83-108); FCOHb 0.3 % (0.5-1.5); FMetHb 0.3 % (0.3-1.12); FO2Hb 93.7 % (94-100); MINUTE VOLUME 16 L/min; PATIENT TEMPERATURE 37.7; PEEP 8 cm H2O; RESPIRATORY RATE 16 b/min; RESPIRATORY RATE (OBSERVED) 20 b/min; TIDAL VOLUME 500 mL; TOTAL HEMOGLOBIN 10.8 G/dl (14.0-17.9)
[2019-03-14 03:46] LABS: BASOPHILS % (AUTO) 0.2 % (0-1); EOSINOPHILS # (AUTO) 0.1 X10'3 (0-0.9); EOSINOPHILS % (AUTO) 0.5 % (0-6); HEMATOCRIT 29.2 % (42.0-52.0); HEMOGLOBIN 9.5 g/dl (14.0-17.9); LYMPHOCYTES # (AUTO) 2.2 X10'3 (1.1-4.8); LYMPHOCYTES % (AUTO) 12.5 % (21-51); MEAN CORPUSCULAR HEMOGLOBIN 29.1 PG (27.0-31.0); MEAN CORPUSCULAR HGB CONC 32.5 g/dL (33.0-36.5); MEAN CORPUSCULAR VOLUME 89.3 FL (78-98); MEAN PLATELET VOLUME 8.1 FL (7.4-10.4); MONOCYTES # (AUTO) 2.4 X10'3 (0-0.9); MONOCYTES % (AUTO) 13.4 % (2-12); NEUTROPHILS # (AUTO) 13.2 X10'3 (1.8-7.7); NEUTROPHILS % (AUTO) 73.4 % (42-75); PLATELET COUNT 825 X10'3 (140-440); RED BLOOD COUNT 3.27 X10'6 (4.70-6.10); RED CELL DISTRIBUTION WIDTH 20.4 % (11.5-14.5); WHITE BLOOD COUNT 17.9 X10'3 (4.5-11.0)
[2019-03-14 04:06] LABS: ALANINE AMINOTRANSFERASE 28 U/L (12-78); ALBUMIN/GLOBULIN RATIO 0.4 (1.1-1.5); ALKALINE PHOSPHATASE 142 IU/L (46-116); ANION GAP 8 (8-16); ASPARTATE AMINO TRANSFERASE 21 U/L (10-37); BILIRUBIN,TOTAL 0.2 MG/DL (0.1-1.0); BLOOD UREA NITROGEN 12 MG/DL (7-18); BUN/CREATININE RATIO 21.1 (5.4-32.0); CALCIUM 8.4 MG/DL (8.5-10.1); CHLORIDE 102 MMOL/L (99-107); CREATININE 0.57 MG/DL (0.60-1.10); GLUCOSE 140 MG/DL (70-104); MAGNESIUM 1.9 MG/DL (1.5-2.4); PHOSPHORUS 3.3 MG/DL (2.3-4.5); POTASSIUM 3.7 MMOL/L (3.5-5.1); PREALBUMIN 16.5 MG/DL (19-36); SODIUM 139 MMOL/L (135-145); TOTAL CARBON DIOXIDE 29.3 MMOL/L (24-32); TOTAL PROTEIN 6.6 G/DL (6.4-8.2); eGFR > 90 ML/MIN
--- NOTE | 2019-03-14 04:28 | NUR ---
PATIENT IN BED EYES CLOSED RR EVEN UN LABORED NO OBSERVABLE S/S OF ACUTE STRESS AT THIS TIME
[2019-03-14 04:30] LABS: ANISOCYTOSIS 3+; HYPOCHROMASIA 1+; LARGE PLATELETS FEW; PLATELET ESTIMATE INCREASED; TARGET CELLS FEW
[2019-03-14] MEDS: midazolam 100mg in NS 100ml 100 ML IV PRN ×2 (04:39→23:03)
--- NOTE | 2019-03-14 06:27 | NUR ---
SBAR TO MARSHALL BONILLA NO QUESTIONS OR CONCERNS AFTER ASSUMING CARE
[2019-03-14] MEDS: methylnaltrexone br 12mg/0.6ml inj***SubQ only SQ SCH (08:00)
--- NOTE | 2019-03-14 09:30 | NUR ---
Called [facility] to address wound vac; there is serous fluid on the skin not being removed by the vac. [facility] nurse reported that they have orders to change it, but need orders to remove the perfecto first. Dr Ribeiro's # given to [facility] nurse; they stated that was the number they tried already, and they would try again soon
[2019-03-14] MEDS: famotidine/PF 10 mg/ml inj IV SCH ×2 (09:45→22:10)
[2019-03-14] MEDS: lactobacillus rhamnosus 10,000 MMU CELLS/CAPSULE OGT SCH ×2 (09:45→22:10)
[2019-03-14] MEDS ORDERED: amiodarone 150mg/dext, iso-os 100 ML IV ONE (10:45)
[2019-03-14] MEDS: FENTANYL-0.9 % NACL/PF 100 ML IV PRN ×2 (11:14→19:35)
[2019-03-14] MEDS: amiodarone/D5 360MG/200ML BAG 200 ML IV SCH ×2 (11:21→17:12)
[2019-03-14 12:53] LABS: TROPONIN I 0.04 NG/ML (0.0-0.05)
[2019-03-14 15:53] LABS: MAGNESIUM 1.9 MG/DL (1.5-2.4); POTASSIUM 3.7 MMOL/L (3.5-5.1)
--- NOTE | 2019-03-14 15:58 | NUR ---
F/U (03/14): Pt lost 2kg since admit possibly r/t fluid, pt with -3L fluid balance over last 2 days. Current TF rate calculated to meet 100% of est. nutrition needs. Pt is tolerating TF well with GRV WNL. No documented LBM, however per RN at rounds pt with large liquid stools today. Will continue to monitor. Recommendations: 1. OGTF per MD using Vital AF 1.2 at 95ml/hr goal; to provide 2280 ml fluid,2736 kcal, 1847 ml free water, and 171 g protein. 2. additional water flushes 200ml Q4H 3. prealbumin q /; daily wts 4. Routine bowel care 5. Diet advancement to regular as medically indicated following extubation Addendum: 03/14/19 at [address] Amended: Links added. Addendum: 03/14/19 at [address] I have reviewed and agree with note by Powertrain Design Engineer. Eden Babcock, LAW
--- NOTE | 2019-03-14 16:18 | NUR ---
WOUND VAC EDUCATION PROVIDED BY WOUND CARE 1. Patient instructed to call the Wound Center or their Home Health Agency immediately if: * They notice a change in the color or amount of the fluid in the canister. * Their wound looks more red than usual or has a foul smell. * The skin around their wound looks reddened or irritated. * The dressing feels loose or appears to be loose. * They experience any increase or changes in their pain. * The alarm will not turn off. 2. Patient instructed that they should not be disconnected from suction for more than 2 hours at a time. * If they are not able to get the suction back on, they need to remove the dressing and take all of the foam out of the wound. * Then moisten sterile gauze with normal saline and place on/in the wound. * Change the dressing once a day until arrangements have been made to replace the wound vac dressing. 3. Patient instructed to turn the wound vac machine OFF and call 911 or go to the ED immediately if their canister fills rapidly with blood. 4. If any of these occur while in the hospital tell a nurse immediately. Addendum: 03/14/19 at 1618 by Shiloh Landa RN Amended: Links added.
[2019-03-14] MEDS: insulin glargine (Lantus) pen - multi-dose SQ SCH (21:00)
[2019-03-14] MEDS: enoxaparin 40mg/0.4ml syringe SUBCUT SCH (22:11)
[2019-03-14] MEDS: diatr meglu/diatrizoate 30ml oral sol.-(3 dose) bottle PO SCH (22:12)
[2019-03-15] VITALS (24 sets, daily range): BP systolic 85–129; BP diastolic 44–64
[2019-03-15] MEDS: penicillin G potassium inj 4,000,000 UNIT in normal saline 100ml IV soln 100 ML IV SCH ×6 (00:57→20:33)
[2019-03-15 02:45] LABS: BASOPHILS # (AUTO) 0.1 X10'3 (0-0.2); HEMOGLOBIN 8.6 g/dl (14.0-17.9); MEAN PLATELET VOLUME 7.4 FL (7.4-10.4); MONOCYTES # (AUTO) 2.2 X10'3 (0-0.9)
[2019-03-15 02:47] LABS: BASOPHILS % (AUTO) 0.4 % (0-1); EOSINOPHILS # (AUTO) 0.1 X10'3 (0-0.9); EOSINOPHILS % (AUTO) 0.8 % (0-6); HEMATOCRIT 25.7 % (42.0-52.0); LYMPHOCYTES # (AUTO) 2.6 X10'3 (1.1-4.8); LYMPHOCYTES % (AUTO) 14.5 % (21-51); MEAN CORPUSCULAR HEMOGLOBIN 29.9 PG (27.0-31.0); MEAN CORPUSCULAR HGB CONC 33.4 g/dL (33.0-36.5); MEAN CORPUSCULAR VOLUME 89.4 FL (78-98); MONOCYTES % (AUTO) 12.3 % (2-12); NEUTROPHILS # (AUTO) 12.9 X10'3 (1.8-7.7); PLATELET COUNT 932 X10'3 (140-440); RED BLOOD COUNT 2.87 X10'6 (4.70-6.10); RED CELL DISTRIBUTION WIDTH 20.3 % (11.5-14.5); WHITE BLOOD COUNT 17.9 X10'3 (4.5-11.0)
[2019-03-15 03:02] LABS: ALANINE AMINOTRANSFERASE 22 U/L (12-78); ALBUMIN 1.8 G/DL (3.4-5.0); ALBUMIN/GLOBULIN RATIO 0.4 (1.1-1.5); ALKALINE PHOSPHATASE 105 IU/L (46-116); ANION GAP 5 (8-16); ASPARTATE AMINO TRANSFERASE 18 U/L (10-37); BILIRUBIN,TOTAL 0.2 MG/DL (0.1-1.0); BLOOD UREA NITROGEN 13 MG/DL (7-18); BUN/CREATININE RATIO 25.5 (5.4-32.0); CALCIUM 8.8 MG/DL (8.5-10.1); CHLORIDE 103 MMOL/L (99-107); CREATININE 0.51 MG/DL (0.60-1.10); GLUCOSE 98 MG/DL (70-104); PHOSPHORUS 4.3 MG/DL (2.3-4.5); POTASSIUM 4.6 MMOL/L (3.5-5.1); SODIUM 136 MMOL/L (135-145); TOTAL PROTEIN 6.3 G/DL (6.4-8.2); eGFR > 90 ML/MIN
[2019-03-15 03:26] LABS: ANISOCYTOSIS 3+; HYPOCHROMASIA 1+; LARGE PLATELETS FEW; PLATELET ESTIMATE INCREASED
[2019-03-15] MEDS: albuterol 2.5 MG/3 ML nebule NEB SCH ×6 (04:07→23:14)
[2019-03-15] MEDS: acetylcysteine 200 MG/ml 4ml vial INH SCH ×5 (04:07→23:14)
[2019-03-15 04:30] LABS: ABG BASE EXCESS 3.8 mmol/L (-2.0-3.0); ABG OXYGEN SATURATION 93.5 % (95-98); ABG PCO2 (T) 41.2 mmHg (35.0-45.0); ABG PH (T) 7.451 (7.350-7.450); FCOHb 0.2 % (0.5-1.5); FMetHb 0.1 % (0.3-1.12); FO2Hb 93.2 % (94-100); MINUTE VOLUME 8 L/min; PATIENT TEMPERATURE 37.3; PEEP 5 cm H2O; RESPIRATORY RATE 16 b/min; RESPIRATORY RATE (OBSERVED) 16 b/min; TIDAL VOLUME 500 mL; TOTAL HEMOGLOBIN 10.2 G/dl (14.0-17.9)
[2019-03-15] MEDS: amiodarone/D5 360MG/200ML BAG 200 ML IV SCH ×4 (04:53→16:18)
[2019-03-15] MEDS: FENTANYL-0.9 % NACL/PF 100 ML IV PRN ×2 (05:00→18:09)
[2019-03-15] MEDS: diatr meglu/diatrizoate 30ml oral sol.-(3 dose) bottle PO SCH ×2 (06:44→21:00)
[2019-03-15] MEDS: famotidine/PF 10 mg/ml inj IV SCH ×2 (07:27→20:33)
[2019-03-15] MEDS: enoxaparin 40mg/0.4ml syringe SUBCUT SCH (07:28)
[2019-03-15] MEDS ORDERED: iohexol 300mg/ml 100ml inj. ONE (07:41)
[2019-03-15] MEDS: lactobacillus rhamnosus 10,000 MMU CELLS/CAPSULE OGT SCH ×2 (08:00→20:33)
[2019-03-15] MEDS: CLINDAMYCIN/D5W 900mg/50ml 50 ML IV SCH ×2 (08:25→16:18)
--- NOTE | 2019-03-15 09:23 | NUR ---
I have reviewed and agree with all medications administered and interventions performed by [facility] Student Kvng Vivar Addendum: 03/15/19 at 0923 by Terrie Figueroa RT Amended: Links added.
[2019-03-15] MEDS ORDERED: enoxaparin 50mg/0.5ml (from 3ml vial) syringe SUBCUT ONE (11:50)
--- NOTE | 2019-03-15 13:31 | NUR ---
NO POST EVAL RT WAS CALLED STAT TO eR DURING MED NEB. Addendum: 03/15/19 at 1333 by Terrie Figueroa RT Amended: Links added.
[2019-03-15] MEDS: scopolamine 1.5mg patch.TD72 TD SCH (13:40)
[2019-03-15] MEDS: enoxaparin 30mg/0.3ml syringe SUBCUT SCH (20:00)
[2019-03-15] MEDS: enoxaparin 60mg/0.6ml syringe SUBCUT SCH (20:34)
[2019-03-15] MEDS: insulin glargine (Lantus) pen - multi-dose SQ SCH (21:00)
[2019-03-15] MEDS ORDERED: albumin (Human) 5% 250ml 250 ML IV ONE ×2 (21:25)
[2019-03-16] VITALS (27 sets, daily range): BP systolic 89–127; BP diastolic 44–62
[2019-03-16] MEDS ORDERED: enoxaparin 60mg/0.6ml syringe SUBCUT SCH
[2019-03-16] MEDS: amiodarone/D5 360MG/200ML BAG 200 ML IV SCH ×2 (00:20→05:11)
[2019-03-16] MEDS: midazolam 100mg in NS 100ml 100 ML IV PRN ×2 (00:21→20:43)
[2019-03-16] MEDS: CLINDAMYCIN/D5W 900mg/50ml 50 ML IV SCH ×4 (00:22→23:27)
[2019-03-16] MEDS: penicillin G potassium inj 4,000,000 UNIT in normal saline 100ml IV soln 100 ML IV SCH ×7 (00:23→23:27)
[2019-03-16] MEDS: NORepinephrine 8mg/ 250ml NS 250 ML IV SCH (01:17)
[2019-03-16] MEDS: albuterol 2.5 MG/3 ML nebule NEB SCH ×6 (03:16→23:31)
[2019-03-16] MEDS: acetylcysteine 200 MG/ml 4ml vial INH SCH ×6 (03:16→23:31)
[2019-03-16 03:17] LABS: BASOPHILS # (AUTO) 0.1 X10'3 (0-0.2)
[2019-03-16 03:19] LABS: BASOPHILS % (AUTO) 0.5 % (0-1); EOSINOPHILS # (AUTO) 0.2 X10'3 (0-0.9); EOSINOPHILS % (AUTO) 1.1 % (0-6); HEMATOCRIT 23.5 % (42.0-52.0); HEMOGLOBIN 7.7 g/dl (14.0-17.9); LYMPHOCYTES # (AUTO) 1.8 X10'3 (1.1-4.8); LYMPHOCYTES % (AUTO) 12.1 % (21-51); MEAN CORPUSCULAR HEMOGLOBIN 29.1 PG (27.0-31.0); MEAN CORPUSCULAR HGB CONC 32.6 g/dL (33.0-36.5); MEAN CORPUSCULAR VOLUME 89.2 FL (78-98); MEAN PLATELET VOLUME 7.4 FL (7.4-10.4); MONOCYTES % (AUTO) 13.9 % (2-12); NEUTROPHILS # (AUTO) 10.7 X10'3 (1.8-7.7); NEUTROPHILS % (AUTO) 72.4 % (42-75); PLATELET COUNT 994 X10'3 (140-440); RED BLOOD COUNT 2.64 X10'6 (4.70-6.10); RED CELL DISTRIBUTION WIDTH 20.5 % (11.5-14.5); WHITE BLOOD COUNT 14.7 X10'3 (4.5-11.0)
[2019-03-16 04:09] LABS: TOTAL CELLS COUNTED 100
[2019-03-16 04:10] LABS: ANISOCYTOSIS 3+; HYPOCHROMASIA 1+; LARGE PLATELETS FEW; PLATELET ESTIMATE INCREASED
[2019-03-16 04:15] LABS: ABG BASE EXCESS 2.2 mmol/L (-2.0-3.0); ABG HCO3 25.6 mmol/L (22.0-26.0); ABG OXYGEN SATURATION 93.3 % (95-98); ABG PCO2 (T) 35.6 mmHg (35.0-45.0); ABG PH (T) 7.476 (7.350-7.450); ABG PO2 (T) 67.3 mmHg (83-108); FCOHb 0.3 % (0.5-1.5); FMetHb 0.1 % (0.3-1.12); FO2Hb 92.9 % (94-100); MINUTE VOLUME 10 L/min; PATIENT TEMPERATURE 37.2; PEEP 5 cm H2O; RESPIRATORY RATE 16 b/min; RESPIRATORY RATE (OBSERVED) 16 b/min; TIDAL VOLUME 500 mL
[2019-03-16 04:15] LABS: ALANINE AMINOTRANSFERASE 23 U/L (12-78); ALBUMIN 2.2 G/DL (3.4-5.0); ALBUMIN/GLOBULIN RATIO 0.5 (1.1-1.5); ALKALINE PHOSPHATASE 94 IU/L (46-116); ANION GAP 9 (8-16); ASPARTATE AMINO TRANSFERASE 15 U/L (10-37); BILIRUBIN,TOTAL 0.3 MG/DL (0.1-1.0); BLOOD UREA NITROGEN 8 MG/DL (7-18); BUN/CREATININE RATIO 15.4 (5.4-32.0); CALCIUM 8.5 MG/DL (8.5-10.1); CHLORIDE 99 MMOL/L (99-107); CREATININE 0.52 MG/DL (0.60-1.10); GLUCOSE 105 MG/DL (70-104); MAGNESIUM 1.9 MG/DL (1.5-2.4); PHOSPHORUS 4.6 MG/DL (2.3-4.5); POTASSIUM 3.9 MMOL/L (3.5-5.1); SODIUM 136 MMOL/L (135-145); TOTAL CARBON DIOXIDE 28.2 MMOL/L (24-32); TOTAL PROTEIN 6.3 G/DL (6.4-8.2); eGFR > 90 ML/MIN
[2019-03-16] MEDS: FENTANYL-0.9 % NACL/PF 100 ML IV PRN ×3 (04:43→23:59)
[2019-03-16] MEDS: methylnaltrexone br 12mg/0.6ml inj***SubQ only SQ SCH (07:00)
[2019-03-16] MEDS: famotidine/PF 10 mg/ml inj IV SCH ×2 (08:54→20:39)
[2019-03-16] MEDS: lactobacillus rhamnosus 10,000 MMU CELLS/CAPSULE OGT SCH ×2 (08:55→20:39)
[2019-03-16] MEDS: enoxaparin 30mg/0.3ml syringe SUBCUT SCH ×2 (08:56→20:39)
[2019-03-16] MEDS: enoxaparin 60mg/0.6ml syringe SUBCUT SCH ×2 (08:57→20:40)
[2019-03-16 11:57] LABS: ALANINE AMINOTRANSFERASE 23 U/L (12-78); ALBUMIN 2.1 G/DL (3.4-5.0); ALBUMIN/GLOBULIN RATIO 0.5 (1.1-1.5); ALKALINE PHOSPHATASE 99 IU/L (46-116); ASPARTATE AMINO TRANSFERASE 16 U/L (10-37); BILIRUBIN,DIRECT 0.1 MG/DL (0-0.3); BILIRUBIN,TOTAL 0.2 MG/DL (0.1-1.0); TOTAL PROTEIN 6.3 G/DL (6.4-8.2)
[2019-03-16] MEDS: amiodarone 200mg tablet PO SCH ×2 (12:17→20:39)
[2019-03-16] MEDS: piperacillin/tazo 3.375gm/50ml 50 ML IV SCH ×2 (15:45→23:27)
--- NOTE | 2019-03-16 17:21 | NUR ---
(girlfriend 18 years) called asking for patient permission to bring his debit card home and use it to pay bills. Patients wallet located with other belongings and patient agreed to let get card and use it to pay bills. She stated that she will try to come get it tomorrow
--- NOTE | 2019-03-16 18:30 | NUR ---
Patient in room CICU 2013. I have received report from CHAD Velasco and had the opportunity to ask questions and assume patient care.
[2019-03-16] MEDS: insulin glargine (Lantus) pen - multi-dose SQ SCH (20:40)
[2019-03-17] VITALS (25 sets, daily range): BP systolic 91–140; BP diastolic 45–70
--- NOTE | 2019-03-17 01:05 | NUR ---
Vital signs and I/O charted at 0105 is the second 0100 hour vitals and I/O of the night due to day light savings.
[2019-03-17 03:20] LABS: BASOPHILS # (AUTO) 0.1 X10'3 (0-0.2); BASOPHILS % (AUTO) 0.5 % (0-1); EOSINOPHILS # (AUTO) 0.2 X10'3 (0-0.9); EOSINOPHILS % (AUTO) 1.2 % (0-6); MEAN PLATELET VOLUME 7.4 FL (7.4-10.4)
[2019-03-17 03:21] LABS: HEMATOCRIT 26.9 % (42.0-52.0); LYMPHOCYTES # (AUTO) 1.6 X10'3 (1.1-4.8); LYMPHOCYTES % (AUTO) 11.5 % (21-51); MEAN CORPUSCULAR HGB CONC 33.3 g/dL (33.0-36.5); MEAN CORPUSCULAR VOLUME 89.9 FL (78-98); MONOCYTES # (AUTO) 2.1 X10'3 (0-0.9); MONOCYTES % (AUTO) 15.3 % (2-12); NEUTROPHILS # (AUTO) 9.9 X10'3 (1.8-7.7); NEUTROPHILS % (AUTO) 71.5 % (42-75); PLATELET COUNT 960 X10'3 (140-440); RED CELL DISTRIBUTION WIDTH 19.6 % (11.5-14.5); WHITE BLOOD COUNT 13.9 X10'3 (4.5-11.0)
[2019-03-17] MEDS: albuterol 2.5 MG/3 ML nebule NEB SCH ×6 (03:25→22:49)
[2019-03-17 03:37] LABS: ALANINE AMINOTRANSFERASE 20 U/L (12-78); ALBUMIN/GLOBULIN RATIO 0.5 (1.1-1.5); ALKALINE PHOSPHATASE 94 IU/L (46-116); ANION GAP 6 (8-16); ASPARTATE AMINO TRANSFERASE 15 U/L (10-37); BILIRUBIN,TOTAL 0.4 MG/DL (0.1-1.0); BLOOD UREA NITROGEN 11 MG/DL (7-18); BUN/CREATININE RATIO 19.3 (5.4-32.0); CALCIUM 8.4 MG/DL (8.5-10.1); CHLORIDE 99 MMOL/L (99-107); CREATININE 0.57 MG/DL (0.60-1.10); GLUCOSE 104 MG/DL (70-104); PHOSPHORUS 4.2 MG/DL (2.3-4.5); SODIUM 133 MMOL/L (135-145); TOTAL CARBON DIOXIDE 28.4 MMOL/L (24-32); TOTAL PROTEIN 6.2 G/DL (6.4-8.2); eGFR > 90 ML/MIN
[2019-03-17 03:45] LABS: ABG BASE EXCESS 2.6 mmol/L (-2.0-3.0); ABG HCO3 26.6 mmol/L (22.0-26.0); ABG OXYGEN SATURATION 92.6 % (95-98); ABG PCO2 (T) 38.9 mmHg (35.0-45.0); ABG PH (T) 7.453 (7.350-7.450); ABG PO2 (T) 63.6 mmHg (83-108); FCOHb 0.4 % (0.5-1.5); FO2Hb 92.2 % (94-100); MINUTE VOLUME 11 L/min; PEEP 5 cm H2O; RESPIRATORY RATE 14 b/min; RESPIRATORY RATE (OBSERVED) 20 b/min; TIDAL VOLUME 500 mL; TOTAL HEMOGLOBIN 10.3 G/dl (14.0-17.9)
[2019-03-17 03:48] LABS: PLATELET ESTIMATE INCREASED; TOTAL CELLS COUNTED 100
[2019-03-17 03:49] LABS: ANISOCYTOSIS 2+; HYPOCHROMASIA 1+; LARGE PLATELETS FEW; POLYCHROMASIA FEW; STOMATOCYTES FEW
[2019-03-17] MEDS: penicillin G potassium inj 4,000,000 UNIT in normal saline 100ml IV soln 100 ML IV SCH ×6 (04:08→23:22)
--- NOTE | 2019-03-17 06:37 | NUR ---
Problems reprioritized. Patient report given, questions answered & plan of care reviewed with CHAD Le.
[2019-03-17] MEDS: famotidine/PF 10 mg/ml inj IV SCH ×2 (07:48→20:58)
[2019-03-17] MEDS: piperacillin/tazo 3.375gm/50ml 50 ML IV SCH ×3 (07:48→23:23)
[2019-03-17] MEDS: CLINDAMYCIN/D5W 900mg/50ml 50 ML IV SCH ×3 (07:48→23:23)
[2019-03-17] MEDS: lactobacillus rhamnosus 10,000 MMU CELLS/CAPSULE OGT SCH ×2 (07:48→20:37)
[2019-03-17] MEDS: enoxaparin 60mg/0.6ml syringe SUBCUT SCH ×2 (07:49→20:59)
[2019-03-17] MEDS: amiodarone 200mg tablet PO SCH ×2 (07:49→20:37)
[2019-03-17] MEDS: enoxaparin 30mg/0.3ml syringe SUBCUT SCH ×2 (07:49→21:00)
--- NOTE | 2019-03-17 13:12 | NUR ---
Reassessment: Pt tolerating TF at goal. LBM 03/16. Na 133; RD d/w MD regarding water flush adjustments. Per MD change to 150ml Q6. Will continue to monitor. Recommendations: 1. OGTF per MD using Vital AF 1.2 at 95ml/hr goal; to provide 2280 ml fluid,2736 kcal, 1847 ml free water, and 171 g protein. 2. additional water flushes 150ml Q6 per photographic double 3. prealbumin q /; daily wts 4. Routine bowel care 5. Diet advancement to regular as medically indicated following extubation Addendum: 03/17/19 at [address] Amended: Links added. Addendum: 03/18/19 at [address] reassessment: Pt PO fluctuating initially mostly 100% then 50-75% 3 days now back up to 75-100% likely meeting healing needs. L knee PU w/ wound vac noted. LBM 03/17. Pending anti-hyperlipidemic per MD approval; unable to reach RN today when called floor. Will continue to monitor. Rec: 1. advance diet per MD to heart healthy/carb controlled 2. anti-hyperlipidemic per MD approval w/ TG 155 on admit 3. wt per rx
[2019-03-17] MEDS: midazolam 100mg in NS 100ml 100 ML IV PRN (13:58)
[2019-03-17] MEDS: FENTANYL-0.9 % NACL/PF 100 ML IV PRN (13:59)
[2019-03-17] MEDS ORDERED: sodium bicarbonate 0.48mEq/ml 5ml inj. INH SCH (15:00)
[2019-03-17] MEDS: mineral oil/petrolatum ophthal oint EACHEYE SCH ×2 (15:44→21:00)
[2019-03-17] MEDS: sodium bicarbonate 4.2% (0.5mEq/ml) inj. IH SCH ×2 (16:01→22:49)
[2019-03-17] MEDS: furosemide 20 MG/2 ML vial IV SCH ×2 (16:07→23:23)
--- NOTE | 2019-03-17 18:30 | NUR ---
Patient in room CICU 2013. I have received report from CHAD Le and had the opportunity to ask questions and assume patient care.
[2019-03-17] MEDS: insulin glargine (Lantus) pen - multi-dose SQ SCH (21:00)
[2019-03-17] MEDS: NORepinephrine 8mg/ 250ml NS 250 ML IV SCH (22:15)
[2019-03-18] VITALS (23 sets, daily range): BP systolic 89–125; BP diastolic 41–67
[2019-03-18] MEDS: mineral oil/petrolatum ophthal oint EACHEYE SCH ×4 (02:13→19:38)
[2019-03-18 02:43] LABS: BASOPHILS # (AUTO) 0.1 X10'3 (0-0.2); EOSINOPHILS # (AUTO) 0.2 X10'3 (0-0.9); HEMOGLOBIN 8.5 g/dl (14.0-17.9); LYMPHOCYTES # (AUTO) 1.5 X10'3 (1.1-4.8); NEUTROPHILS # (AUTO) 8.3 X10'3 (1.8-7.7)
[2019-03-18 02:45] LABS: BASOPHILS % (AUTO) 0.7 % (0-1); EOSINOPHILS % (AUTO) 1.5 % (0-6); HEMATOCRIT 25.7 % (42.0-52.0); MEAN CORPUSCULAR HEMOGLOBIN 29.7 PG (27.0-31.0); MEAN CORPUSCULAR VOLUME 89.8 FL (78-98); MEAN PLATELET VOLUME 7.4 FL (7.4-10.4); MONOCYTES # (AUTO) 2.2 X10'3 (0-0.9); MONOCYTES % (AUTO) 17.9 % (2-12); NEUTROPHILS % (AUTO) 67.9 % (42-75); PLATELET COUNT 990 X10'3 (140-440); RED BLOOD COUNT 2.86 X10'6 (4.70-6.10); RED CELL DISTRIBUTION WIDTH 19.9 % (11.5-14.5); WHITE BLOOD COUNT 12.1 X10'3 (4.5-11.0)
[2019-03-18 02:52] LABS: ALANINE AMINOTRANSFERASE 16 U/L (12-78); ALBUMIN 1.9 G/DL (3.4-5.0); ALBUMIN/GLOBULIN RATIO 0.5 (1.1-1.5); ALKALINE PHOSPHATASE 82 IU/L (46-116); ANION GAP 6 (8-16); ASPARTATE AMINO TRANSFERASE 15 U/L (10-37); BILIRUBIN,TOTAL 0.2 MG/DL (0.1-1.0); BLOOD UREA NITROGEN 12 MG/DL (7-18); CALCIUM 8.3 MG/DL (8.5-10.1); CHLORIDE 100 MMOL/L (99-107); GLUCOSE 103 MG/DL (70-104); PHOSPHORUS 4.6 MG/DL (2.3-4.5); POTASSIUM 3.4 MMOL/L (3.5-5.1); SODIUM 136 MMOL/L (135-145); TOTAL CARBON DIOXIDE 30.3 MMOL/L (24-32); TOTAL PROTEIN 5.9 G/DL (6.4-8.2); eGFR > 90 ML/MIN
[2019-03-18] MEDS: potassium Cl 20mEq/100mL bag 100 ML IV PRN ×2 (03:12→04:22)
[2019-03-18] MEDS: albuterol 2.5 MG/3 ML nebule NEB SCH ×6 (03:27→23:10)
[2019-03-18 03:28] LABS: ANISOCYTOSIS 2+; HYPOCHROMASIA 1+; LARGE PLATELETS FEW; PLATELET ESTIMATE INCREASED; POLYCHROMASIA FEW; STOMATOCYTES FEW; TOTAL CELLS COUNTED 100
[2019-03-18 03:41] LABS: ABG BASE EXCESS 3.3 mmol/L (-2.0-3.0); ABG HCO3 27.4 mmol/L (22.0-26.0); ABG OXYGEN SATURATION 91.3 % (95-98); ABG PH (T) 7.454 (7.350-7.450); ABG PO2 (T) 60.3 mmHg (83-108); FCOHb 0.3 % (0.5-1.5); MINUTE VOLUME 7 L/min; PEEP 5 cm H2O; RESPIRATORY RATE 14 b/min; RESPIRATORY RATE (OBSERVED) 14 b/min; TIDAL VOLUME 500 mL; TOTAL HEMOGLOBIN 9.9 G/dl (14.0-17.9)
[2019-03-18] MEDS: FENTANYL-0.9 % NACL/PF 100 ML IV PRN ×3 (04:34→23:36)
[2019-03-18] MEDS: penicillin G potassium inj 4,000,000 UNIT in normal saline 100ml IV soln 100 ML IV SCH ×6 (04:35→23:34)
--- NOTE | 2019-03-18 06:22 | NUR ---
Problems reprioritized. Patient report given, questions answered & plan of care reviewed with Art,RN.
[2019-03-18] MEDS: methylnaltrexone br 12mg/0.6ml inj***SubQ only SQ SCH (08:00)
[2019-03-18] MEDS: enoxaparin 60mg/0.6ml syringe SUBCUT SCH ×2 (08:08→19:39)
[2019-03-18] MEDS: amiodarone 200mg tablet PO SCH ×2 (08:08→19:37)
[2019-03-18] MEDS: famotidine/PF 10 mg/ml inj IV SCH ×2 (08:08→19:37)
[2019-03-18] MEDS: furosemide 20 MG/2 ML vial IV SCH ×3 (08:08→23:34)
[2019-03-18] MEDS: lactobacillus rhamnosus 10,000 MMU CELLS/CAPSULE OGT SCH ×2 (08:08→19:37)
[2019-03-18] MEDS: enoxaparin 30mg/0.3ml syringe SUBCUT SCH ×2 (08:09→19:38)
[2019-03-18] MEDS: piperacillin/tazo 3.375gm/50ml 50 ML IV SCH (08:10)
[2019-03-18] MEDS: CLINDAMYCIN/D5W 900mg/50ml 50 ML IV SCH ×3 (08:11→23:34)
[2019-03-18] MEDS: midazolam 100mg in NS 100ml 100 ML IV PRN ×2 (08:58→23:34)
[2019-03-18 09:12] LABS: PREALBUMIN 14.2 MG/DL (19-36)
[2019-03-18] MEDS: scopolamine 1.5mg patch.TD72 TD SCH (09:25)
[2019-03-18] MEDS: sodium bicarbonate 4.2% (0.5mEq/ml) inj. IH SCH ×3 (10:00→23:10)
--- NOTE | 2019-03-18 18:00 | NUR ---
Patient in room CICU 2013. I have received report from Art RN and had the opportunity to ask questions and assume patient care.
[2019-03-18] MEDS: insulin glargine (Lantus) pen - multi-dose SQ SCH (21:00)
[2019-03-19] VITALS (23 sets, daily range): BP systolic 83–127; BP diastolic 44–72
[2019-03-19] MEDS: mineral oil/petrolatum ophthal oint EACHEYE SCH ×4 (02:17→20:30)
[2019-03-19 02:48] LABS: BASOPHILS # (AUTO) 0.1 X10'3 (0-0.2); BASOPHILS % (AUTO) 0.7 % (0-1); EOSINOPHILS # (AUTO) 0.2 X10'3 (0-0.9); EOSINOPHILS % (AUTO) 1.9 % (0-6); HEMATOCRIT 28.2 % (42.0-52.0); HEMOGLOBIN 9.2 g/dl (14.0-17.9); LYMPHOCYTES # (AUTO) 1.7 X10'3 (1.1-4.8); LYMPHOCYTES % (AUTO) 14.1 % (21-51); MEAN CORPUSCULAR HEMOGLOBIN 29.4 PG (27.0-31.0); MEAN CORPUSCULAR HGB CONC 32.7 g/dL (33.0-36.5); MEAN CORPUSCULAR VOLUME 89.9 FL (78-98); MEAN PLATELET VOLUME 7.2 FL (7.4-10.4); MONOCYTES % (AUTO) 17.2 % (2-12); NEUTROPHILS # (AUTO) 7.8 X10'3 (1.8-7.7); NEUTROPHILS % (AUTO) 66.1 % (42-75); RED BLOOD COUNT 3.13 X10'6 (4.70-6.10); RED CELL DISTRIBUTION WIDTH 19.3 % (11.5-14.5); WHITE BLOOD COUNT 11.8 X10'3 (4.5-11.0)
[2019-03-19 02:53] LABS: PLATELET COUNT 1080 X10'3 (140-440)
[2019-03-19 03:00] LABS: ALANINE AMINOTRANSFERASE 17 U/L (12-78); ALBUMIN 2.1 G/DL (3.4-5.0); ALBUMIN/GLOBULIN RATIO 0.4 (1.1-1.5); ALKALINE PHOSPHATASE 84 IU/L (46-116); ANION GAP 7 (8-16); ASPARTATE AMINO TRANSFERASE 12 U/L (10-37); BILIRUBIN,TOTAL 0.2 MG/DL (0.1-1.0); BLOOD UREA NITROGEN 14 MG/DL (7-18); BUN/CREATININE RATIO 25.9 (5.4-32.0); CALCIUM 8.9 MG/DL (8.5-10.1); CHLORIDE 99 MMOL/L (99-107); CREATININE 0.54 MG/DL (0.60-1.10); GLUCOSE 108 MG/DL (70-104); PHOSPHORUS 4.8 MG/DL (2.3-4.5); POTASSIUM 4.1 MMOL/L (3.5-5.1); SODIUM 136 MMOL/L (135-145); TOTAL CARBON DIOXIDE 30.3 MMOL/L (24-32); TOTAL PROTEIN 6.8 G/DL (6.4-8.2); eGFR > 90 ML/MIN
[2019-03-19] MEDS: albuterol 2.5 MG/3 ML nebule NEB SCH ×6 (03:29→23:13)
[2019-03-19 03:41] LABS: ANISOCYTOSIS 2+; PLATELET ESTIMATE INCREASED; TOTAL CELLS COUNTED 100
[2019-03-19 03:43] LABS: HYPOCHROMASIA 1+; LARGE PLATELETS FEW; POLYCHROMASIA FEW
[2019-03-19 04:01] LABS: ABG BASE EXCESS 3.1 mmol/L (-2.0-3.0); ABG HCO3 27.4 mmol/L (22.0-26.0); ABG OXYGEN SATURATION 92.3 % (95-98); ABG PCO2 (T) 40.1 mmHg (35.0-45.0); ABG PH (T) 7.451 (7.350-7.450); ABG PO2 (T) 62.9 mmHg (83-108); FCOHb 0.3 % (0.5-1.5); FMetHb 0.3 % (0.3-1.12); FO2Hb 91.7 % (94-100); MINUTE VOLUME 7 L/min; PATIENT TEMPERATURE 36.8; PEEP 5 cm H2O; RESPIRATORY RATE 14 b/min; RESPIRATORY RATE (OBSERVED) 14 b/min; TIDAL VOLUME 500 mL; TOTAL HEMOGLOBIN 10.2 G/dl (14.0-17.9)
[2019-03-19] MEDS: penicillin G potassium inj 4,000,000 UNIT in normal saline 100ml IV soln 100 ML IV SCH ×2 (04:21→07:53)
--- NOTE | 2019-03-19 06:06 | NUR ---
I have reviewed and agree with all interventions, assessments performed and documented by CHAD Donald.
--- NOTE | 2019-03-19 06:17 | NUR ---
Problems reprioritized. Patient report given, questions answered & plan of care reviewed with Art RN.
[2019-03-19] MEDS: lactobacillus rhamnosus 10,000 MMU CELLS/CAPSULE OGT SCH ×2 (07:50→20:32)
[2019-03-19] MEDS: famotidine/PF 10 mg/ml inj IV SCH ×2 (07:50→20:31)
[2019-03-19] MEDS: amiodarone 200mg tablet PO SCH ×2 (07:50→20:32)
[2019-03-19] MEDS: furosemide 20 MG/2 ML vial IV SCH ×2 (07:50→16:29)
[2019-03-19] MEDS: enoxaparin 30mg/0.3ml syringe SUBCUT SCH ×2 (07:51→20:33)
[2019-03-19] MEDS: enoxaparin 60mg/0.6ml syringe SUBCUT SCH ×2 (07:51→20:33)
[2019-03-19] MEDS: CLINDAMYCIN/D5W 900mg/50ml 50 ML IV SCH ×2 (07:53→16:29)
[2019-03-19] MEDS: sodium bicarbonate 4.2% (0.5mEq/ml) inj. IH SCH (08:00)
[2019-03-19] MEDS: FENTANYL-0.9 % NACL/PF 100 ML IV PRN (10:03)
--- NOTE | 2019-03-19 12:05 | NUR ---
Spoke with pt's girlfriend and then nephew for updates. It was requested by this RN that they pick one person to be the repositor of information to share with the variety of interested parties.
--- NOTE | 2019-03-19 14:43 | NUR ---
F/U (03/19): Pt is tolerating TF at goal with GRC WNL. LBM 03/18. Will continue to monitor. Recommendations: 1. OGTF per MD using Vital AF 1.2 at 95ml/hr goal; to provide 2280 ml fluid,2736 kcal, 1847 ml free water, and 171 g protein. 2. Additional water flushes 150ml Q6 per diagnostic imaging manager 3. prealbumin q /; daily wts 4. Diet advancement to regular as medically indicated following extubation Addendum: 03/19/19 at [address] Amended: Links added. Addendum: 03/19/19 at [address] LAW Approves
[2019-03-19] MEDS: cefTAZidime inj 2 GM in normal saline 100ml IV soln 100 ML IV SCH (16:29)
--- NOTE | 2019-03-19 18:30 | NUR ---
assumed care from art rn and tyshawn rn verbalized is aware of the elevated plt count and lovenox is what patient is to receive, no questions or concerns after assuming care
[2019-03-19] MEDS: insulin glargine (Lantus) pen - multi-dose SQ SCH (21:00)
--- NOTE | 2019-03-19 21:24 | NUR ---
patient in bed covers on eyes closed rr even un labored no observable s/s of acute stress at this time
--- NOTE | 2019-03-19 21:30 | NUR ---
pt groin area started to become red and irritated, barrier cream applied to the area of concern. will continue to monitor
[2019-03-20] VITALS (22 sets, daily range): BP systolic 84–122; BP diastolic 42–63
--- NOTE | 2019-03-20 00:03 | NUR ---
patient in bed eyes closed still with copious secretions rr even un labored no observable s/s of acute stress at this time
[2019-03-20] MEDS: cefTAZidime inj 2 GM in normal saline 100ml IV soln 100 ML IV SCH ×3 (00:14→17:00)
[2019-03-20] MEDS: furosemide 20 MG/2 ML vial IV SCH ×3 (00:14→17:00)
[2019-03-20] MEDS: CLINDAMYCIN/D5W 900mg/50ml 50 ML IV SCH ×3 (00:15→17:00)
[2019-03-20] MEDS: mineral oil/petrolatum ophthal oint EACHEYE SCH ×4 (02:23→19:55)
--- NOTE | 2019-03-20 02:31 | NUR ---
patient in bed covers on rr even un labored no observable s/s of acute stress at this time will continue to observe
[2019-03-20 02:35] LABS: BASOPHILS # (AUTO) 0.1 X10'3 (0-0.2); EOSINOPHILS # (AUTO) 0.2 X10'3 (0-0.9); MONOCYTES # (AUTO) 1.8 X10'3 (0-0.9); MONOCYTES % (AUTO) 14.3 % (2-12)
[2019-03-20 02:37] LABS: BASOPHILS % (AUTO) 0.6 % (0-1); EOSINOPHILS % (AUTO) 1.4 % (0-6); HEMATOCRIT 27.5 % (42.0-52.0); LYMPHOCYTES # (AUTO) 1.9 X10'3 (1.1-4.8); LYMPHOCYTES % (AUTO) 14.8 % (21-51); MEAN CORPUSCULAR HEMOGLOBIN 29.7 PG (27.0-31.0); MEAN CORPUSCULAR HGB CONC 32.6 g/dL (33.0-36.5); MEAN CORPUSCULAR VOLUME 90.9 FL (78-98); MEAN PLATELET VOLUME 6.9 FL (7.4-10.4); NEUTROPHILS # (AUTO) 8.7 X10'3 (1.8-7.7); NEUTROPHILS % (AUTO) 68.9 % (42-75); RED BLOOD COUNT 3.02 X10'6 (4.70-6.10); WHITE BLOOD COUNT 12.7 X10'3 (4.5-11.0)
[2019-03-20 02:41] LABS: PLATELET COUNT 1013 X10'3 (140-440)
[2019-03-20] MEDS: albuterol 2.5 MG/3 ML nebule NEB SCH ×6 (02:53→23:44)
[2019-03-20 02:56] LABS: ALANINE AMINOTRANSFERASE 17 U/L (12-78); ALBUMIN 2.1 G/DL (3.4-5.0); ALBUMIN/GLOBULIN RATIO 0.5 (1.1-1.5); ALKALINE PHOSPHATASE 81 IU/L (46-116); ANION GAP 7 (8-16); ASPARTATE AMINO TRANSFERASE 13 U/L (10-37); BILIRUBIN,TOTAL 0.2 MG/DL (0.1-1.0); BLOOD UREA NITROGEN 17 MG/DL (7-18); BUN/CREATININE RATIO 30.9 (5.4-32.0); CALCIUM 8.8 MG/DL (8.5-10.1); CHLORIDE 99 MMOL/L (99-107); CREATININE 0.55 MG/DL (0.60-1.10); GLUCOSE 105 MG/DL (70-104); PHOSPHORUS 4.9 MG/DL (2.3-4.5); SODIUM 135 MMOL/L (135-145); TOTAL CARBON DIOXIDE 28.7 MMOL/L (24-32); TOTAL PROTEIN 6.7 G/DL (6.4-8.2); eGFR > 90 ML/MIN
[2019-03-20 03:01] LABS: ABG BASE EXCESS 2.5 mmol/L (-2.0-3.0); ABG HCO3 26.8 mmol/L (22.0-26.0); ABG OXYGEN SATURATION 93.8 % (95-98); ABG PCO2 (T) 40.7 mmHg (35.0-45.0); ABG PH (T) 7.437 (7.350-7.450); ABG PO2 (T) 70.2 mmHg (83-108); FCOHb 0.3 % (0.5-1.5); FMetHb 0.1 % (0.3-1.12); FO2Hb 93.4 % (94-100); MINUTE VOLUME 7 L/min; PATIENT TEMPERATURE 37.3; PEEP 5 cm H2O; RESPIRATORY RATE 14 b/min; RESPIRATORY RATE (OBSERVED) 14 b/min; TIDAL VOLUME 500 mL; TOTAL HEMOGLOBIN 10.2 G/dl (14.0-17.9)
[2019-03-20 03:19] LABS: GIANT PLATELET FEW; LARGE PLATELETS FEW; PLATELET ESTIMATE INCREASED
[2019-03-20] MEDS: FENTANYL-0.9 % NACL/PF 100 ML IV PRN ×3 (04:05→20:44)
--- NOTE | 2019-03-20 04:45 | NUR ---
patient in bed eyes closed rr even un labored no observable s/s of acute stress at this time will continue to monitor
--- NOTE | 2019-03-20 06:09 | NUR ---
Problems reprioritized. Patient report given, questions answered & plan of care reviewed with Rey BONILLA.
[2019-03-20] MEDS: famotidine/PF 10 mg/ml inj IV SCH ×2 (07:29→19:55)
[2019-03-20] MEDS: enoxaparin 60mg/0.6ml syringe SUBCUT SCH (07:30)
[2019-03-20] MEDS: enoxaparin 30mg/0.3ml syringe SUBCUT SCH (07:30)
[2019-03-20] MEDS: amiodarone 200mg tablet PO SCH ×2 (07:31→19:55)
[2019-03-20] MEDS: lactobacillus rhamnosus 10,000 MMU CELLS/CAPSULE OGT SCH ×2 (07:31→19:55)
[2019-03-20] MEDS: methylnaltrexone br 12mg/0.6ml inj***SubQ only SQ SCH (08:00)
[2019-03-20] MEDS: midazolam 100mg in NS 100ml 100 ML IV PRN (13:03)
--- NOTE | 2019-03-20 18:35 | NUR ---
assumed care from Rey BONILLA no question or concerns after SBAR
--- NOTE | 2019-03-20 20:30 | NUR ---
PATIENT IN BED EYES CLOSED RR EVEN UN LABORED NO OBSERVABLE S/S OF ACUTE STRESS AT THIS TIME WILL CONTINUE TO MONITOR
[2019-03-20] MEDS: insulin glargine (Lantus) pen - multi-dose SQ SCH (21:00)
[2019-03-20] MEDS ORDERED: diatr meglu/diatrizoate 30ml oral sol.-(3 dose) bottle NG ONE (22:00)
--- NOTE | 2019-03-20 23:00 | NUR ---
PATIENT IN BED EYES CLOSED RR EVEN UN LABORED NO OBSERVABLE S/S OF ACUTE STRESS AT THIS TIME
[2019-03-21] VITALS (32 sets, daily range): BP systolic 91–157; BP diastolic 41–77
[2019-03-21] MEDS: cefTAZidime inj 2 GM in normal saline 100ml IV soln 100 ML IV SCH ×3 (00:01→15:35)
[2019-03-21] MEDS: sodium chloride inj. 154 MEQ in Dextrose 10%-water IV solution 961.5 ML IV SCH ×2 (00:01→17:25)
[2019-03-21] MEDS: CLINDAMYCIN/D5W 900mg/50ml 50 ML IV SCH ×3 (00:01→16:39)
[2019-03-21] MEDS: furosemide 20 MG/2 ML vial IV SCH ×3 (00:01→15:35)
[2019-03-21] MEDS: mineral oil/petrolatum ophthal oint EACHEYE SCH ×4 (02:19→20:00)
--- NOTE | 2019-03-21 02:28 | NUR ---
PATIENT IN BED EYES CLOSED RR EVEN UN LABORED NO OBSERVABLE S/S OF ACUTE STRESS AT THIS TIME WILL CONTINUE TO OBSERVE
[2019-03-21 02:39] LABS: BASOPHILS # (AUTO) 0.1 X10'3 (0-0.2); EOSINOPHILS # (AUTO) 0.2 X10'3 (0-0.9); HEMOGLOBIN 8.8 g/dl (14.0-17.9); NEUTROPHILS # (AUTO) 6.7 X10'3 (1.8-7.7)
[2019-03-21 02:40] LABS: EOSINOPHILS % (AUTO) 2.3 % (0-6); HEMATOCRIT 25.9 % (42.0-52.0); LYMPHOCYTES # (AUTO) 1.7 X10'3 (1.1-4.8); LYMPHOCYTES % (AUTO) 16.5 % (21-51); MEAN CORPUSCULAR HEMOGLOBIN 30.4 PG (27.0-31.0); MEAN CORPUSCULAR HGB CONC 33.8 g/dL (33.0-36.5); MEAN PLATELET VOLUME 6.7 FL (7.4-10.4); MONOCYTES # (AUTO) 1.6 X10'3 (0-0.9); MONOCYTES % (AUTO) 15.5 % (2-12); NEUTROPHILS % (AUTO) 64.7 % (42-75); PLATELET COUNT 980 X10'3 (140-440); RED BLOOD COUNT 2.88 X10'6 (4.70-6.10); WHITE BLOOD COUNT 10.4 X10'3 (4.5-11.0)
[2019-03-21 02:50] LABS: PARTIAL THROMBOPLASTIN TIME 25 SECONDS (22-32)
[2019-03-21 02:51] LABS: ALANINE AMINOTRANSFERASE 15 U/L (12-78); ALBUMIN 2.1 G/DL (3.4-5.0); ALBUMIN/GLOBULIN RATIO 0.5 (1.1-1.5); ALKALINE PHOSPHATASE 67 IU/L (46-116); ANION GAP 7 (8-16); ASPARTATE AMINO TRANSFERASE 13 U/L (10-37); BILIRUBIN,TOTAL 0.2 MG/DL (0.1-1.0); BLOOD UREA NITROGEN 19 MG/DL (7-18); BUN/CREATININE RATIO 33.3 (5.4-32.0); CALCIUM 8.6 MG/DL (8.5-10.1); CHLORIDE 99 MMOL/L (99-107); CREATININE 0.57 MG/DL (0.60-1.10); GLUCOSE 107 MG/DL (70-104); PHOSPHORUS 4.7 MG/DL (2.3-4.5); POTASSIUM 3.5 MMOL/L (3.5-5.1); PREALBUMIN 18.2 MG/DL (19-36); SODIUM 136 MMOL/L (135-145); TOTAL PROTEIN 6.7 G/DL (6.4-8.2); eGFR > 90 ML/MIN
[2019-03-21] MEDS: albuterol 2.5 MG/3 ML nebule NEB SCH ×6 (03:11→22:59)
[2019-03-21 03:24] LABS: ANISOCYTOSIS 2+; PLATELET ESTIMATE INCREASED; TOTAL CELLS COUNTED 100
[2019-03-21 03:25] LABS: HYPOCHROMASIA 1+; POLYCHROMASIA 1+
[2019-03-21] MEDS: midazolam 100mg in NS 100ml 100 ML IV PRN ×2 (03:42→21:23)
[2019-03-21] MEDS: FENTANYL-0.9 % NACL/PF 100 ML IV PRN ×3 (03:42→20:58)
[2019-03-21 04:26] LABS: ABG BASE EXCESS 3.7 mmol/L (-2.0-3.0); ABG HCO3 26.4 mmol/L (22.0-26.0); ABG OXYGEN SATURATION 94.5 % (95-98); ABG PCO2 (T) 32.9 mmHg (35.0-45.0); ABG PH (T) 7.522 (7.350-7.450); ABG PO2 (T) 69.5 mmHg (83-108); FCOHb 0.3 % (0.5-1.5); FMetHb 0.1 % (0.3-1.12); FO2Hb 94.1 % (94-100); MINUTE VOLUME 7 L/min; PEEP 5 cm H2O; RESPIRATORY RATE 14 b/min; RESPIRATORY RATE (OBSERVED) 16 b/min; TIDAL VOLUME 500 mL; TOTAL HEMOGLOBIN 9.8 G/dl (14.0-17.9)
--- NOTE | 2019-03-21 04:30 | NUR ---
patient still with copious secretions, was able to educate patient on today's scheduled procedures, with patient mouthing "thank you." and hand squeezes, I believe the educational talk helped in putting patient at ease,he appears to understand and is voicing that he understands and he is ok with it. patient rr even unlabored with no observable s/s of acute stress during or after the educational talk will continue to monitor
--- NOTE | 2019-03-21 06:15 | NUR ---
SBAR TO MIRTHA BONILLA NO QUESTIONS OR CONCERNS AFTER ASSUMING CARE
--- NOTE | 2019-03-21 06:23 | NUR ---
Patient in room CICU 2013. I have received report from Alcides BONILLA and had the opportunity to ask questions and assume patient care.
[2019-03-21] MEDS: lactobacillus rhamnosus 10,000 MMU CELLS/CAPSULE OGT SCH (07:19)
[2019-03-21] MEDS: famotidine/PF 10 mg/ml inj IV SCH ×2 (07:19→20:56)
[2019-03-21] MEDS: amiodarone 200mg tablet PO SCH (07:19)
[2019-03-21] MEDS: methylnaltrexone br 12mg/0.6ml inj***SubQ only SQ SCH (07:52)
[2019-03-21] MEDS ORDERED: sevoflurane 250ml liquid IH ONE (09:12)
--- NOTE | 2019-03-21 09:15 | NUR ---
Pt. down to OR for trach.
[2019-03-21] MEDS ORDERED: rocuronium 10mg/ml inj IV ONE (10:21)
--- NOTE | 2019-03-21 11:00 | NUR ---
Patient returned from OR with new trach. Some tracheal deviation noted down to the right due to patient's impaired left lung, Dr. Lau assessed at bedside, no intervenable concerns at this time.
[2019-03-21] MEDS: scopolamine 1.5mg patch.TD72 TD SCH (11:03)
--- NOTE | 2019-03-21 12:36 | NUR ---
F/U (03/21): Pt was at OR for TRACH placement, expected to get PEG placement this afternoon per bedside RN. Pt is likely transferring to [facility] tomorrow per MD. Pt is currently NPO due to surgery, however pt is tolerating TF at goal with GRV WNL. Recommend same continuos goal rate for TF once PEG placed and ok'd to use by MD. LBM documented as 03/17, however per RN at rounds pt is stooling.Pt continues with routine Relistor, last given today. Will continue to monitor. Recommendations: 1. OGTF per MD using Vital AF 1.2 at 95ml/hr goal; to provide 2280 ml fluid,2736 kcal, 1847 ml free water, and 171 g protein. 2. Additional water flushes 150ml Q6 per venture capital analyst 3. prealbumin q /; daily wts 4. Diet advancement to regular as medically indicated following extubation Addendum: 03/21/19 at [address] Amended: Links added. Addendum: 03/21/19 at [address] I have reviewed and agree with note by Vertical Roll Operator. Eden Babcock RD
[2019-03-21] MEDS ORDERED: iohexol 300 MG/1 ML 50ml polymer ONE (12:55)
[2019-03-21] MEDS ORDERED: LIDOcaine 1%/PF 5ML 10 MG/ML VIAL ONE (12:55)
--- NOTE | 2019-03-21 13:15 | NUR ---
Down to IR for PEG tube
[2019-03-21] MEDS ORDERED: glucagon, human recombinant 1mg kit ONE (13:42)
[2019-03-21] MEDS ORDERED: zinc oxide ointment 30gm tube TP PRN (14:05)
--- NOTE | 2019-03-21 14:20 | NUR ---
TF consult (03/21): TF consult per MD, not to start G-tube feeding until 6 hours after placement. Recommendations below as calculated to meet 100% est. nutrition need. F/U (03/21): Pt was at OR for TRACH placement, expected to get PEG placement this afternoon per bedside RN. Pt is likely transferring to [facility] tomorrow per MD. Pt is currently NPO due to surgery, however pt is tolerating TF at goal with GRV WNL. Recommend same continuos goal rate for TF once PEG placed and ok'd to use by MD. LBM documented as 03/17, however per RN at rounds pt is stooling.Pt continues with routine Relistor, last given today. Will continue to monitor. Recommendations: 1. Once ok'd to use per MD, PEGTF using Vital AF 1.2 at 95ml/hr goal; to provide 2280 ml fluid,2736 kcal, 1847 ml free water, and 171 g protein. 2. Additional water flushes 150ml Q6H per voip network technician 3. prealbumin q /; daily wts 4. Diet advancement to regular as medically indicated following extubation Addendum: 03/21/19 at [address] Amended: Links added.
[2019-03-21] MEDS ORDERED: dextrose ORAL solution 15 GM/59 ML bottle PEG PRN ×2 (16:16→16:19)
[2019-03-21] MEDS ORDERED: acetaminophen 325mg/10.15ml oral unit dose solution PEG PRN (16:16)
[2019-03-21] MEDS: amiodarone 200mg tablet PEG SCH (20:59)
[2019-03-21] MEDS: lactobacillus rhamnosus 10,000 MMU CELLS/CAPSULE PEG SCH (20:59)
[2019-03-21] MEDS: insulin glargine (Lantus) pen - multi-dose SQ SCH (21:00)
[2019-03-22] VITALS (23 sets, daily range): BP systolic 94–151; BP diastolic 48–78
[2019-03-22] MEDS: furosemide 20 MG/2 ML vial IV SCH ×3 (00:25→15:47)
[2019-03-22] MEDS: CLINDAMYCIN/D5W 900mg/50ml 50 ML IV SCH ×3 (00:26→16:36)
[2019-03-22] MEDS: cefTAZidime inj 2 GM in normal saline 100ml IV soln 100 ML IV SCH ×2 (00:26→08:24)
[2019-03-22] MEDS: mineral oil/petrolatum ophthal oint EACHEYE SCH ×4 (02:00→19:34)
[2019-03-22] MEDS: FENTANYL-0.9 % NACL/PF 100 ML IV PRN ×3 (02:40→22:55)
[2019-03-22] MEDS: albuterol 2.5 MG/3 ML nebule NEB SCH ×6 (02:41→22:46)
[2019-03-22 03:21] LABS: BASOPHILS # (AUTO) 0.1 X10'3 (0-0.2); EOSINOPHILS # (AUTO) 0.3 X10'3 (0-0.9); HEMOGLOBIN 9.9 g/dl (14.0-17.9); MEAN CORPUSCULAR VOLUME 90.7 FL (78-98); MEAN PLATELET VOLUME 7.1 FL (7.4-10.4)
[2019-03-22 03:23] LABS: BASOPHILS % (AUTO) 0.4 % (0-1); EOSINOPHILS % (AUTO) 1.8 % (0-6); HEMATOCRIT 30.5 % (42.0-52.0); LYMPHOCYTES # (AUTO) 2.1 X10'3 (1.1-4.8); LYMPHOCYTES % (AUTO) 14.3 % (21-51); MEAN CORPUSCULAR HEMOGLOBIN 29.6 PG (27.0-31.0); MEAN CORPUSCULAR HGB CONC 32.6 g/dL (33.0-36.5); MONOCYTES # (AUTO) 2.5 X10'3 (0-0.9); MONOCYTES % (AUTO) 16.9 % (2-12); NEUTROPHILS # (AUTO) 9.8 X10'3 (1.8-7.7); NEUTROPHILS % (AUTO) 66.6 % (42-75); RED BLOOD COUNT 3.36 X10'6 (4.70-6.10); RED CELL DISTRIBUTION WIDTH 20.1 % (11.5-14.5); WHITE BLOOD COUNT 14.6 X10'3 (4.5-11.0)
[2019-03-22 03:25] LABS: PARTIAL THROMBOPLASTIN TIME 25 SECONDS (22-32)
[2019-03-22 03:27] LABS: ALANINE AMINOTRANSFERASE 18 U/L (12-78); ALBUMIN 2.5 G/DL (3.4-5.0); ALBUMIN/GLOBULIN RATIO 0.5 (1.1-1.5); ALKALINE PHOSPHATASE 76 IU/L (46-116); ANION GAP 10 (8-16); ASPARTATE AMINO TRANSFERASE 15 U/L (10-37); BILIRUBIN,TOTAL 0.2 MG/DL (0.1-1.0); BLOOD UREA NITROGEN 15 MG/DL (7-18); BUN/CREATININE RATIO 24.6 (5.4-32.0); CALCIUM 9.2 MG/DL (8.5-10.1); CHLORIDE 100 MMOL/L (99-107); CREATININE 0.61 MG/DL (0.60-1.10); GLUCOSE 111 MG/DL (70-104); MAGNESIUM 1.9 MG/DL (1.5-2.4); PHOSPHORUS 4.8 MG/DL (2.3-4.5); SODIUM 137 MMOL/L (135-145); TOTAL CARBON DIOXIDE 26.7 MMOL/L (24-32); TOTAL PROTEIN 7.9 G/DL (6.4-8.2); eGFR > 90 ML/MIN
[2019-03-22 03:29] LABS: PLATELET COUNT 1026 X10'3 (140-440)
[2019-03-22 03:48] LABS: TOTAL CELLS COUNTED 100
[2019-03-22 03:49] LABS: PLATELET ESTIMATE INCREASED
[2019-03-22 03:50] LABS: ANISOCYTOSIS 3+; HYPOCHROMASIA 1+; POLYCHROMASIA 1+
[2019-03-22] MEDS: potassium Cl 20mEq/100mL bag 100 ML IV PRN ×4 (04:02→06:46)
[2019-03-22 04:35] LABS: ABG BASE EXCESS 1.4 mmol/L (-2.0-3.0); ABG HCO3 25.1 mmol/L (22.0-26.0); ABG OXYGEN SATURATION 94.3 % (95-98); ABG PCO2 (T) 36.3 mmHg (35.0-45.0); ABG PH (T) 7.458 (7.350-7.450); ABG PO2 (T) 73.2 mmHg (83-108); FCOHb 0.3 % (0.5-1.5); MINUTE VOLUME 6 L/min; PATIENT TEMPERATURE 37.1; PEEP 5 cm H2O; RESPIRATORY RATE 14 b/min; RESPIRATORY RATE (OBSERVED) 15 b/min; TIDAL VOLUME 450 mL; TOTAL HEMOGLOBIN 10.2 G/dl (14.0-17.9)
--- NOTE | 2019-03-22 06:20 | NUR ---
Patient in room CICU 2013. I have received report from Kalia BONILLA and had the opportunity to ask questions and assume patient care.
[2019-03-22] MEDS: methylnaltrexone br 12mg/0.6ml inj***SubQ only SQ SCH (06:43)
[2019-03-22] MEDS: midazolam 100mg in NS 100ml 100 ML IV PRN (07:05)
--- NOTE | 2019-03-22 07:38 | NUR ---
I have reviewed and agree with all medications administered and interventions performed by [facility] Student Kvng Vivar Addendum: 03/22/19 at 0738 by Terrie Figueroa RT Amended: Links added.
[2019-03-22] MEDS: famotidine/PF 10 mg/ml inj IV SCH ×2 (07:48→19:34)
[2019-03-22] MEDS: lactobacillus rhamnosus 10,000 MMU CELLS/CAPSULE PEG SCH ×2 (07:49→19:36)
[2019-03-22] MEDS: amiodarone 200mg tablet PEG SCH ×2 (07:49→19:34)
[2019-03-22] MEDS: cefazolin/dext.iso 2gm/100ml 100 ML IV SCH ×2 (08:30→15:47)
[2019-03-22] MEDS: enoxaparin 60mg/0.6ml syringe SUBCUT SCH (11:23)
[2019-03-22] MEDS: enoxaparin 30mg/0.3ml syringe SUBCUT SCH (11:23)
[2019-03-22] MEDS: sodium chloride inj. 154 MEQ in Dextrose 10%-water IV solution 961.5 ML IV SCH (13:25)
[2019-03-22] MEDS ORDERED: cefazolin/dext.iso 2gm/100ml 100 ML IV SCH (16:00)
[2019-03-22] MEDS: ondansetron/PF 4mg/2ml inj IV PRN ×2 (18:36→19:06)
[2019-03-22] MEDS: NYSTATIN CREAM - 30GM TUBE TP SCH (19:35)
[2019-03-22] MEDS ORDERED: cefazolin/dext.iso 2gm/50ml 100 ML IV SCH (20:26)
[2019-03-22] MEDS: insulin glargine (Lantus) pen - multi-dose SQ SCH (21:00)
[2019-03-22] MEDS: HYDROcodone/acetaminophen 10/325mg tab PO PRN (23:03)
[2019-03-23] VITALS (24 sets, daily range): BP systolic 92–129; BP diastolic 47–72
[2019-03-23] MEDS: CLINDAMYCIN/D5W 900mg/50ml 50 ML IV SCH ×4 (00:01→23:59)
[2019-03-23] MEDS: furosemide 20 MG/2 ML vial IV SCH ×3 (00:01→16:25)
[2019-03-23] MEDS: cefazolin/dext.iso 2gm/50ml 50 ML IV SCH ×3 (00:05→16:26)
[2019-03-23] MEDS: mineral oil/petrolatum ophthal oint EACHEYE SCH ×4 (02:00→19:37)
[2019-03-23] MEDS: albuterol 2.5 MG/3 ML nebule NEB SCH ×6 (02:16→22:37)
[2019-03-23] MEDS: risperiDONE 0.5mg tablet PO PRN (03:17)
[2019-03-23 03:18] LABS: BASOPHILS # (AUTO) 0.1 X10'3 (0-0.2); MONOCYTES # (AUTO) 2.2 X10'3 (0-0.9)
[2019-03-23 03:21] LABS: BASOPHILS % (AUTO) 0.6 % (0-1); EOSINOPHILS # (AUTO) 0.4 X10'3 (0-0.9); EOSINOPHILS % (AUTO) 3.1 % (0-6); HEMOGLOBIN 9.3 g/dl (14.0-17.9); LYMPHOCYTES % (AUTO) 15.6 % (21-51); MEAN CORPUSCULAR HEMOGLOBIN 30.3 PG (27.0-31.0); MEAN CORPUSCULAR HGB CONC 33.1 g/dL (33.0-36.5); MEAN CORPUSCULAR VOLUME 91.5 FL (78-98); MEAN PLATELET VOLUME 6.7 FL (7.4-10.4); MONOCYTES % (AUTO) 16.4 % (2-12); NEUTROPHILS # (AUTO) 8.4 X10'3 (1.8-7.7); NEUTROPHILS % (AUTO) 64.3 % (42-75); PLATELET COUNT 896 X10'3 (140-440); RED BLOOD COUNT 3.06 X10'6 (4.70-6.10); RED CELL DISTRIBUTION WIDTH 19.4 % (11.5-14.5); WHITE BLOOD COUNT 13.1 X10'3 (4.5-11.0)
[2019-03-23 03:32] LABS: PARTIAL THROMBOPLASTIN TIME 27 SECONDS (22-32)
[2019-03-23 03:34] LABS: ALANINE AMINOTRANSFERASE 15 U/L (12-78); ALBUMIN 2.3 G/DL (3.4-5.0); ALBUMIN/GLOBULIN RATIO 0.4 (1.1-1.5); ALKALINE PHOSPHATASE 79 IU/L (46-116); ANION GAP 9 (8-16); ASPARTATE AMINO TRANSFERASE 13 U/L (10-37); BILIRUBIN,TOTAL 0.2 MG/DL (0.1-1.0); BLOOD UREA NITROGEN 17 MG/DL (7-18); BUN/CREATININE RATIO 29.8 (5.4-32.0); CHLORIDE 101 MMOL/L (99-107); CREATININE 0.57 MG/DL (0.60-1.10); GLUCOSE 112 MG/DL (70-104); PHOSPHORUS 4.4 MG/DL (2.3-4.5); POTASSIUM 3.5 MMOL/L (3.5-5.1); SODIUM 137 MMOL/L (135-145); TOTAL CARBON DIOXIDE 26.6 MMOL/L (24-32); TOTAL PROTEIN 7.5 G/DL (6.4-8.2); eGFR > 90 ML/MIN
[2019-03-23] MEDS: midazolam 100mg in NS 100ml 100 ML IV PRN (05:13)
[2019-03-23] MEDS: FENTANYL-0.9 % NACL/PF 100 ML IV PRN (05:14)
[2019-03-23] MEDS: famotidine/PF 10 mg/ml inj IV SCH ×2 (07:48→19:37)
[2019-03-23] MEDS: enoxaparin 30mg/0.3ml syringe SUBCUT SCH (07:49)
[2019-03-23] MEDS: amiodarone 200mg tablet PEG SCH ×2 (07:49→19:35)
[2019-03-23] MEDS: lactobacillus rhamnosus 10,000 MMU CELLS/CAPSULE PEG SCH ×2 (07:49→19:35)
[2019-03-23] MEDS: enoxaparin 60mg/0.6ml syringe SUBCUT SCH (07:50)
[2019-03-23] MEDS: NYSTATIN CREAM - 30GM TUBE TP SCH (08:55)
[2019-03-23] MEDS: sodium chloride inj. 154 MEQ in Dextrose 10%-water IV solution 961.5 ML IV SCH (08:58)
[2019-03-23] MEDS ORDERED: mag hydrox/Alum hydrox/simeth 30ml oral suspension PO PRN (09:35)
[2019-03-23] MEDS ORDERED: CADD PCA waste documentation MC PRN (09:35)
[2019-03-23] MEDS ORDERED: naloxone 0.4 mg/ml inj IV PRN (09:35)
[2019-03-23] MEDS: HYDROmorphone/NS 1 mg/ml CADD 50 ML IV SCH ×4 (10:33→15:00)
--- NOTE | 2019-03-23 12:38 | NUR ---
D/C'd right femoral art line, pressure held for 10 minutes, no bleeding to site after release. Patient tolerated well D/C'd dumont catheter, patient tolerated well.
[2019-03-23] MEDS: nystatin 15 GM powder TP SCH ×2 (13:00→19:53)
[2019-03-23] MEDS: HYDROcodone/acetaminophen 10/325mg tab PO PRN ×2 (16:09→19:39)
--- NOTE | 2019-03-23 18:30 | NUR ---
Patient in room CICU 2013. I have received report and had the opportunity to ask questions and assume patient care.
--- NOTE | 2019-03-23 19:00 | NUR ---
pt is A&O x 4. pt has a trach and is not sedated. pt is calm and cooperative. pt has copious secretions and requires frequent suctioning. wound vac to left chest has good seal with no air leak. abdomen is firm and slightly distended, pt reports he has gas. bowel sounds present in all 4 quadrants. pt uses a urinal to void. will continue to monitor.
[2019-03-23] MEDS: insulin glargine (Lantus) pen - multi-dose SQ SCH (19:37)
--- NOTE | 2019-03-23 20:37 | NUR ---
pt refused bath at this time. pt wrote that he "wants to watch tv right no and doesn't need a bath." pt educated on the importance of personal hygiene and infection control. pt continues to refuse bath at this time. will offer bath again later
[2019-03-24] VITALS (23 sets, daily range): BP systolic 106–142; BP diastolic 53–80
[2019-03-24] MEDS: HYDROcodone/acetaminophen 10/325mg tab PO PRN ×6 (00:02→20:18)
[2019-03-24] MEDS: mineral oil/petrolatum ophthal oint EACHEYE SCH ×4 (02:00→20:19)
[2019-03-24] MEDS: albuterol 2.5 MG/3 ML nebule NEB SCH ×6 (03:04→22:39)
[2019-03-24 03:43] LABS: BASOPHILS # (AUTO) 0.1 X10'3 (0-0.2); EOSINOPHILS # (AUTO) 0.2 X10'3 (0-0.9); LYMPHOCYTES # (AUTO) 1.3 X10'3 (1.1-4.8)
[2019-03-24 03:45] LABS: BASOPHILS % (AUTO) 0.7 % (0-1); HEMATOCRIT 27.9 % (42.0-52.0); HEMOGLOBIN 9.3 g/dl (14.0-17.9); LYMPHOCYTES % (AUTO) 12.1 % (21-51); MEAN CORPUSCULAR HEMOGLOBIN 30.4 PG (27.0-31.0); MEAN CORPUSCULAR HGB CONC 33.2 g/dL (33.0-36.5); MEAN CORPUSCULAR VOLUME 91.4 FL (78-98); MONOCYTES # (AUTO) 1.4 X10'3 (0-0.9); MONOCYTES % (AUTO) 12.5 % (2-12); NEUTROPHILS % (AUTO) 72.7 % (42-75); PLATELET COUNT 855 X10'3 (140-440); RED BLOOD COUNT 3.06 X10'6 (4.70-6.10); RED CELL DISTRIBUTION WIDTH 19.6 % (11.5-14.5)
[2019-03-24 03:55] LABS: PARTIAL THROMBOPLASTIN TIME 26 SECONDS (22-32)
[2019-03-24 04:03] LABS: ALANINE AMINOTRANSFERASE 13 U/L (12-78); ALBUMIN 2.3 G/DL (3.4-5.0); ALBUMIN/GLOBULIN RATIO 0.5 (1.1-1.5); ALKALINE PHOSPHATASE 69 IU/L (46-116); ANION GAP 7 (8-16); ASPARTATE AMINO TRANSFERASE 13 U/L (10-37); BILIRUBIN,TOTAL 0.1 MG/DL (0.1-1.0); BLOOD UREA NITROGEN 19 MG/DL (7-18); BUN/CREATININE RATIO 34.5 (5.4-32.0); CALCIUM 8.9 MG/DL (8.5-10.1); CHLORIDE 100 MMOL/L (99-107); CREATININE 0.55 MG/DL (0.60-1.10); GLUCOSE 127 MG/DL (70-104); MAGNESIUM 1.9 MG/DL (1.5-2.4); PHOSPHORUS 3.1 MG/DL (2.3-4.5); POTASSIUM 3.3 MMOL/L (3.5-5.1); SODIUM 137 MMOL/L (135-145); TOTAL CARBON DIOXIDE 29.7 MMOL/L (24-32); TOTAL PROTEIN 7.3 G/DL (6.4-8.2); eGFR > 90 ML/MIN
[2019-03-24] MEDS: potassium Cl 20mEq/100mL bag 100 ML IV PRN ×2 (04:40→07:36)
[2019-03-24] MEDS: sodium chloride inj. 154 MEQ in Dextrose 10%-water IV solution 961.5 ML IV SCH (05:25)
[2019-03-24 07:14] LABS: ANISOCYTOSIS 2+; PLATELET ESTIMATE INCREASED
[2019-03-24] MEDS: furosemide 20 MG/2 ML vial IV SCH ×4 (07:34→23:45)
[2019-03-24] MEDS: famotidine/PF 10 mg/ml inj IV SCH ×2 (07:34→20:20)
[2019-03-24] MEDS: amiodarone 200mg tablet PEG SCH ×2 (07:34→20:16)
[2019-03-24] MEDS: lactobacillus rhamnosus 10,000 MMU CELLS/CAPSULE PEG SCH ×2 (07:34→20:16)
[2019-03-24] MEDS: enoxaparin 30mg/0.3ml syringe SUBCUT SCH (07:35)
[2019-03-24] MEDS: enoxaparin 60mg/0.6ml syringe SUBCUT SCH (07:35)
[2019-03-24] MEDS: cefazolin/dext.iso 2gm/50ml 50 ML IV SCH ×3 (07:36→16:04)
[2019-03-24] MEDS: scopolamine 1.5mg patch.TD72 TD SCH (07:36)
[2019-03-24] MEDS: methylnaltrexone br 12mg/0.6ml inj***SubQ only SQ SCH (07:59)
[2019-03-24] MEDS: CLINDAMYCIN/D5W 900mg/50ml 50 ML IV SCH ×2 (08:00→16:04)
[2019-03-24] MEDS: nystatin 15 GM powder TP SCH ×3 (08:43→21:36)
--- NOTE | 2019-03-24 13:47 | NUR ---
TRIED PASSY MUR PATIENT SATS DROPPED TO 87% AND HARD TO BREATH PUT BACK ON VENT Addendum: 03/24/19 at 1348 by Nena Garcia RT Amended: Links added.
--- NOTE | 2019-03-24 18:15 | NUR ---
Patient in room CICU 2013. I have received report from Ellie BONILLA and had the opportunity to ask questions and assume patient care. Patient with trach on vent with Fio2 at 40% and PEEP of 5, spo2 at 96%, vital signs stable, no signs or symptoms of distress, all monitoring alarms audible, patient has call light in reach and is able to communicate with notes. See interventions and EMR for further information. Will continue to monitor.
[2019-03-24] MEDS: risperiDONE 0.5mg tablet PO PRN (20:15)
[2019-03-24] MEDS: insulin glargine (Lantus) pen - multi-dose SQ SCH (21:00)
[2019-03-25] VITALS (11 sets, daily range): BP systolic 108–142; BP diastolic 53–72
--- NOTE | 2019-03-25 | NUR ---
Patient is frequently using Yankauer to suction oral secretions.
[2019-03-25] MEDS: CLINDAMYCIN/D5W 900mg/50ml 50 ML IV SCH ×2 (00:38→07:10)
[2019-03-25] MEDS: cefazolin/dext.iso 2gm/50ml 50 ML IV SCH ×2 (00:38→07:11)
[2019-03-25] MEDS: mineral oil/petrolatum ophthal oint EACHEYE SCH ×3 (02:00→08:00)
[2019-03-25] MEDS: albuterol 2.5 MG/3 ML nebule NEB SCH ×3 (02:38→10:57)
[2019-03-25 03:21] LABS: BASOPHILS # (AUTO) 0.1 X10'3 (0-0.2); EOSINOPHILS # (AUTO) 0.3 X10'3 (0-0.9); EOSINOPHILS % (AUTO) 2.8 % (0-6); MONOCYTES # (AUTO) 1.4 X10'3 (0-0.9); NEUTROPHILS % (AUTO) 63.1 % (42-75); RED CELL DISTRIBUTION WIDTH 19.6 % (11.5-14.5)
[2019-03-25 03:22] LABS: BASOPHILS % (AUTO) 1.3 % (0-1); HEMATOCRIT 29.1 % (42.0-52.0); HEMOGLOBIN 9.6 g/dl (14.0-17.9); LYMPHOCYTES # (AUTO) 1.7 X10'3 (1.1-4.8); MEAN CORPUSCULAR HEMOGLOBIN 30.2 PG (27.0-31.0); MEAN CORPUSCULAR HGB CONC 33.1 g/dL (33.0-36.5); MEAN CORPUSCULAR VOLUME 91.4 FL (78-98); MONOCYTES % (AUTO) 14.8 % (2-12); NEUTROPHILS # (AUTO) 6.1 X10'3 (1.8-7.7); PLATELET COUNT 845 X10'3 (140-440); RED BLOOD COUNT 3.19 X10'6 (4.70-6.10); WHITE BLOOD COUNT 9.6 X10'3 (4.5-11.0)
[2019-03-25 03:35] LABS: PARTIAL THROMBOPLASTIN TIME 24 SECONDS (22-32)
[2019-03-25 03:38] LABS: ALANINE AMINOTRANSFERASE 11 U/L (12-78); ALBUMIN 2.5 G/DL (3.4-5.0); ALBUMIN/GLOBULIN RATIO 0.5 (1.1-1.5); ALKALINE PHOSPHATASE 72 IU/L (46-116); ANION GAP 8 (8-16); ASPARTATE AMINO TRANSFERASE 12 U/L (10-37); BILIRUBIN,TOTAL 0.1 MG/DL (0.1-1.0); BLOOD UREA NITROGEN 20 MG/DL (7-18); BUN/CREATININE RATIO 40.8 (5.4-32.0); CALCIUM 9.3 MG/DL (8.5-10.1); CHLORIDE 102 MMOL/L (99-107); CREATININE 0.49 MG/DL (0.60-1.10); GLUCOSE 108 MG/DL (70-104); MAGNESIUM 2.1 MG/DL (1.5-2.4); POTASSIUM 3.4 MMOL/L (3.5-5.1); PREALBUMIN 20.8 MG/DL (19-36); SODIUM 140 MMOL/L (135-145); TOTAL CARBON DIOXIDE 30.4 MMOL/L (24-32); TOTAL PROTEIN 7.5 G/DL (6.4-8.2); eGFR > 90 ML/MIN
--- NOTE | 2019-03-25 04:00 | NUR ---
Patient still awake using Yankauer to suction oral secretions.
[2019-03-25] MEDS: HYDROcodone/acetaminophen 10/325mg tab PO PRN ×2 (05:33→09:15)
--- NOTE | 2019-03-25 06:30 | NUR ---
Patient in room CICU 2013. I have received report from CHAD Flower and had the opportunity to ask questions and assume patient care.
[2019-03-25] MEDS: potassium Cl 20mEq/100mL bag 100 ML IV PRN ×2 (07:10→08:49)
[2019-03-25] MEDS: lactobacillus rhamnosus 10,000 MMU CELLS/CAPSULE PEG SCH (07:11)
[2019-03-25] MEDS: nystatin 15 GM powder TP SCH (07:11)
[2019-03-25] MEDS: amiodarone 200mg tablet PEG SCH (07:11)
[2019-03-25] MEDS: enoxaparin 30mg/0.3ml syringe SUBCUT SCH (07:12)
[2019-03-25] MEDS: enoxaparin 60mg/0.6ml syringe SUBCUT SCH (07:12)
[2019-03-25] MEDS: famotidine/PF 10 mg/ml inj IV SCH (07:13)
[2019-03-25] MEDS: furosemide 20 MG/2 ML vial IV SCH (07:13)
[2019-03-25 07:49] LABS: ANISOCYTOSIS 2+; HYPOCHROMASIA 1+; PLATELET ESTIMATE INCREASED; SCHISTOCYTES FEW
--- NOTE | 2019-03-25 11:40 | NUR ---
Called report to CHAD Hernadez at [facility]. I answered all her questions regarding this patient.
--- NOTE | 2019-03-25 12:15 | NUR ---
Patient left with [facility]. Patient was alert and oriented and in a stable condition. Patient vitals stable with BP of 127/64, heart rate of 91, RR of 25, and Sa02 of 98% on fi02 of 40%. Patient was then placed on a gurney and taken from the floor. Contacted CHAD Hernadez at [facility] to let her know at the patient's request that his phone and legal mediator were put in patient belonging bags. Contacted patient son Michael Adams to let him know that his father was enroute to [facility].
--- NOTE | 2019-03-25 12:59 | NUR ---
WOUND INFECTION EDUCATION PROVIDED BY [facility] 1. Patient instructed to call their primary doctor, or go the ED immediately if any of the following symptoms occur: * Increased pain in wound * Increase in drainage from the wound * Redness in the skin surrounding the wound * Warmth in the skin surrounding the wound * Bleeding from the wound * Temperature of 101 or greater 2. If any of these occur while in the hospital tell a nurse immediately. Addendum: 03/25/19 at 1300 by Royce Boogie RN Amended: Links added.
[2019-03-25] MEDS ORDERED: spironolactone 25 MG tablet PEG SCH (13:00)
== END 2019-03-25 13:03 | DRG 3 ==
LOC: ER 20:16 → SUR 3N 23:27 → CICU 2S 23:50
PROVIDERS: ADMIT Surgery; ATTEND Surgery
PROC: 0KBJ0ZZ Excision of Left Thorax Muscle, Open Approach (ICD-10-PCS; 2019-03-07)
PROC: 5A1955Z Respiratory Ventilation, Greater than 96 Consecutive Hours (ICD-10-PCS; 2019-03-08)
PROC: 0BH17EZ Insertion of Endotracheal Airway into Trachea, Via Natural or Artificial Opening (ICD-10-PCS; 2019-03-08)
PROC: 30233N1 Transfusion of Nonautologous Red Blood Cells into Peripheral Vein, Percutaneous Approach (ICD-10-PCS; 2019-03-08)
PROC: 04HY32Z Insertion of Monitoring Device into Lower Artery, Percutaneous Approach (ICD-10-PCS; 2019-03-09)
PROC: 4A133B1 Monitoring of Arterial Pressure, Peripheral, Percutaneous Approach (ICD-10-PCS; 2019-03-09)
PROC: 4A133J1 Monitoring of Arterial Pulse, Peripheral, Percutaneous Approach (ICD-10-PCS; 2019-03-09)
PROC: 0JB60ZZ Excision of Chest Subcutaneous Tissue and Fascia, Open Approach (ICD-10-PCS; principal; 2019-03-09 11:57)
PROC: 02HV33Z Insertion of Infusion Device into Superior Vena Cava, Percutaneous Approach (ICD-10-PCS; 2019-03-12)
PROC: 0BJ08ZZ Inspection of Tracheobronchial Tree, Via Natural or Artificial Opening Endoscopic (ICD-10-PCS; 2019-03-12)
PROC: 02HV33Z Insertion of Infusion Device into Superior Vena Cava, Percutaneous Approach (ICD-10-PCS; 2019-03-13)
PROC: 4A02X4A Measurement of Cardiac Electrical Activity, Guidance, External Approach (ICD-10-PCS; 2019-03-13)
PROC: B548ZZA Ultrasonography of Superior Vena Cava, Guidance (ICD-10-PCS; 2019-03-13)
PROC: BW251ZZ Computerized Tomography (CT Scan) of Chest, Abdomen and Pelvis using Low Osmolar Contrast (ICD-10-PCS; 2019-03-15)
PROC: 30233N1 Transfusion of Nonautologous Red Blood Cells into Peripheral Vein, Percutaneous Approach (ICD-10-PCS; 2019-03-16)
PROC: 0B113F4 Bypass Trachea to Cutaneous with Tracheostomy Device, Percutaneous Approach (ICD-10-PCS; 2019-03-21)
PROC: 0DH63UZ Insertion of Feeding Device into Stomach, Percutaneous Approach (ICD-10-PCS; 2019-03-21)
PROC: BD12ZZZ Fluoroscopy of Stomach (ICD-10-PCS; 2019-03-21)
PROC: 0B9M8ZZ Drainage of Bilateral Lungs, Via Natural or Artificial Opening Endoscopic (ICD-10-PCS; 2019-03-21)
PROC: 0B9M8ZZ Drainage of Bilateral Lungs, Via Natural or Artificial Opening Endoscopic (ICD-10-PCS; 2019-03-21)
DX: A41.9 Sepsis, unspecified organism (principal); M72.6 Necrotizing fasciitis; J96.00 Acute respiratory failure, unspecified whether with hypoxia or hypercapnia; R65.21 Severe sepsis with septic shock; J85.1 Abscess of lung with pneumonia; I82.411 Acute embolism and thrombosis of right femoral vein; L03.313 Cellulitis of chest wall; J91.8 Pleural effusion in other conditions classified elsewhere; G93.49 Other encephalopathy; D62 Acute posthemorrhagic anemia; B95.5 Unspecified streptococcus as the cause of diseases classified elsewhere; D47.3 Essential (hemorrhagic) thrombocythemia; E87.70 Fluid overload, unspecified; I10 Essential (primary) hypertension; I48.91 Unspecified atrial fibrillation; J84.89 Other specified interstitial pulmonary diseases; Z79.899 Other long term (current) drug therapy
CPT/HCPCS: 36415; 36569; 36600; 49440; 71045; 71250; 71260; 74177; 76937; 80048; 80053; 80076; 80305; 81001; 82803; 82948; 83036; 83605; 83735; 84100; 84132; 84134; 84439; 84443; 84484; 85018; 85025; 85379; 85384; 85610; 85730; 86703; 86706; 86803; 86885; 86900; 86901; 86920; 87040; 87070; 87075; 87077; 87081; 87102; 87186; 93308; 94002; 94003; 94640; 94760; 96374; 97110; 97161; 97530; 99152; 99153; 99285; A4618; A6253; A6446; A6550; A7000; A7521; B4087; C1713; C1758; C1894; G0378; J0282; J0330; J0694; J0713; J1100; J1170; J1580; J1610; J1650; J1720; J1815; J1940; J2001; J2212; J2250; J2270; J2405; J2540; J2543; J2704; J3010; J3370; J3480; J3490; J7120; J7131; P9016; P9045; Q9963; Q9967